=== PATIENT | male | born 1955 | race Caucasian/White ===

== ENCOUNTER 2025-07-11 10:05 | Outpatient (AMB) | payer OTHER, SELFPAY ==
--- OUTSIDE RECORDS SUMMARY | 2025-07-08 11:00 | XMS_ITS | Encounter Summary ---
Author Organization [facility] Address [address] [place] [address] Care Team Providers Care Farmworker Fryer Farm Name Role Phone Kim Mcbride PA-C Primary Care Provider [phone] Encounter Details Date Type Department Care Team (Late st Contact Info) Description 07/08/2025 11:00 AM EDT Office Visit [facility] [address] [place] [address] Haja Curiel, [facility] [address] [place], [place] [phone] Social History Tobacco Use Types Packs/Day Years Used Date Smoking Tobacco: Former Smokeless Tobacco: Never Comments:Smoked for 15 years Alcohol Use Standard Drinks/Week Comments Yes 2 (1 standard drink = 0.6 oz pur e alcohol) 2 glasses of vodka daily Social Connections Answer Date Recorded How often do you feel lonely or isolated from th ose around you? 1 12/30/2024 Financial Resource Strain Answer Date R ecorded Hard to pay for: Food 1 12/30/2024 Stress Answer Date Recorded Do you feel these kinds of stress these days? 1 12/30/2024 Physical Activity Answer Date Recorded Physical Activity 0 02/11/2022 Food Insecurity Answer Date Recorded Hard to pay for: Food 1 12/30/2024 Transportation Needs Answer Date Record ed Hard to pay for: Transportation 1 12/30/2024 Housing Stability Answer Date Recorded Hard to pay for: Rent/Mortgage payment 1 12/30/2024 Safety and Environment Answer Date Héctor rded Safety 1 02/23/2024 Utilities Answer Date Recorded Hard to pay for: Utilities 1 12/30 Employment Answer Date Recorded Stress 0 02/23/2024 Sex and Gender Information Value Date Recorded Sex Assigned at Male 06/09/2023 7:16 AM PDT Legal Sex Male 12:51 PM PDT Gender Identity Male 06/09/2023 7:16 AM PDT Sexual Orientation Straight 06/09/2023 7: 16 AM PDT documented as of this encounter Progress Notes * Haja Curiel RDH - 07/08/2025 12:37 PM EDT Prophy, 2 bwx 2 pa's, Exam - Adult Subjective Raymond Patel, 69 year old male, presents alone for Recall exam. Mixed Animal Veterinarian: No No chief complaint on file. Objective RMHx: Yes Vitals: There were no vitals filed for this visit. Assessment EOE/IOE/Oral Cancer Screen: WNL OH: Good Fluoride exposure: toothpaste Home Care: Toothbrush 1 x per day, Floss 1 x per day Plaque: Generalized Slight Calculus: None Bone Loss: Generalized Slight and Localized Slight PSR: Yes Periodontal Screening OHI & Nutrition counseling provided, discussed: Gingivitis Occlusion: N/A. Edentulous. Overbite N/A. Overjet N/A. TMJ: WNL Caries Risk Assessment: Auto calculated Risk Score : moderate risk Dx: K03.1 Abfraction (primary encounter diagnosis) Dx Details (Clinical Decision Making): Plan No restorative needed Informed Consent/PARQ (Procedure, Alternatives, Risks, Questions): Discussed exam findings and treatment needs, questions answered. Patient confirms informed consent using PARQ, verbalizes understanding of exam findings and treatment plan. Dental procedures in this visit D9450 - CASE PRESENTATION SUBS DTL & EXTENSIVE TX PLN (Completed) Service provider: Haja Curiel RDH Billing provider: Ralph Farias DMD [id number] - ORAL CANCER SCREENING (Completed) Service provider: Haja Curiel RDH Billing provider: Ralph Farias DMD D1330 - ORAL HYGIENE INSTRUCTIONS (Completed) Service provider: Haja Curiel RDH Billing provider: Ralph Farias DMD D1310 - NUTRITIONAL COUNSELING CONTROL OF DENTAL DISEASE (Completed) Service provider: Haja Curiel RDH Billing provider: Ralph Farias DMD D0602 - CARIES RISK ASSESSMENT & DOC FINDING MOD RISK (Completed) Service provider: Haja Curiel RDH Billing provider: Ralph Farias DMD D0120 - PERIODIC ORAL EVALUATION ESTABLISHED PATIENT (Completed) Service provider: Haja Curiel RDH Billing provider: Ralph Farias DMD D0180 - COMP PERIODONTAL EVALUATION - NEW/EST PATIENT (Completed) Service provider: Haja Curiel RDH Billing provider: Ralph Farias DMD D0274 - BITEWINGS - FOUR RADIOGRAPHIC IMAGES (Completed) Service provider: Haja Curiel RDH Billing provider: Ralph Farias DMD D1110 - PROPHYLAXIS - ADULT (Completed) Service provider: Haja Curiel RDH Billing provider: Ralph Farias DMD D9993 - DENTAL CASE MANAGEMENT - MOTIVATIONAL INTV (Completed) Service provider: Haja Curiel RDH Billing provider: Ralph Farias DMD Referrals: No orders of the following type(s) were placed in this encounter: Referral. Rx: No orders of the defined types were placed in this encounter. Behavior: Excellent Prophy completed via ultrasonic, handscale, albanian and floss NV: Recall Exam - [address] documented in this encounter Miscellaneous Notes * Patient Instructions - Haja Curiel RDH - 07/08/2025 11:41 AM EDT If you are not able to keep your appointment please call 24-48 hours before your appointment to cancel or reschedule. documented in this encounter Plan of Treatment Upcoming Encounters Date Type Department Care Team (Late st Contact Info) Description 08/04/2025 10:20 AM EDT Office Visit [facility] [address] [place] [phone] Kim Mcbride PA-C [address] [place] [address] documented as of this encounter Procedures Procedure Name Priority Date/Time Associated Diagnosis Comments ORAL CANCER SCREENING Routine 07/08/2025 11:00 AM EDT Abfraction DENTAL CASE MANAGEMENT - MOTIVATIONAL INTV Routine 07/08/2025 11:00 AM EDT Abfraction CARIES RISK ASSESSMENT & DOC FINDING MOD RISK Routine 07/08/2025 11:00 AM EDT Abfraction CASE PRESENTATION SUBS DTL & EXTENSIVE TX PLN Routine 07/08/2025 11:00 AM EDT Abfraction COMP PERIODONTAL EVALUATION - NEW/EST PATIENT Routine 07/08/2025 11:00 AM EDT Abfraction ORAL HYGIENE INSTRUCTIONS Routine 2024 11:00 AM EDT Abfraction NUTRITIONAL COUNSELING CONTROL OF DENTAL DISEASE Routine 07/08/2025 11:00 AM EDT Abfraction PROPHYLAXIS - ADULT Routine 07/08/2025 1 1:00 AM EDT Abfraction BITEWINGS - FOUR RADIOGRAPHIC IMAGES Routine 07/08/2025 11:00 AM EDT Abfraction PERIODIC ORAL EVALUATION ESTABLISHED PATIENT Routine 07/08/2025 11:00 AM EDT Abfraction documented in this encounter Visit Diagnoses Diagnosis Abfraction- Primary documented in this encounter Additional Health Concerns Assessment Noted Time PHQ-9 Depression Total Score: 0 12/30/19 25 11:05 AM PST documented as of this encounter Care Teams Farmworker Fryer Farm Relationship Specialty Start Date End Date Kim Mcbride PA-C [address] [place] [address] PCP - General FAMILY MEDICINELEXIE 02/23/24 documented as of this encounter
--- OUTSIDE RECORDS SUMMARY | 2025-07-08 11:40 | XMS_ITS | Encounter Summary ---
Author Organization [facility] Address [address] [place] [address] Care Team Providers Care Mobile Developer Name Role Phone Kim Mcbride PA-C Primary Care Provider Encounter Details Date Type Department Care Team (Late st Contact Info) Description 07/08/2025 11:40 AM EDT Office Visit [facility] [address] [place] [address] Ralph Farias DMD [address] [place], [place] [phone] Social History Tobacco Use Types Packs/Day Years [...] as of this encounter Progress Notes * Ralph Farias DMD - 07/08/2025 11:47 AM EDT Dental Removable - Adjustment SUBJECTIVE: Raymond Patel, 69 year old male, presents alone for Mandibular Complete Denture adjustment. Serology Teacher: No No chief complaint on file. OBJECTIVE: RMHx: Yes Vitals: There were no vitals filed for this visit. ASSESSMENT: Dx: K08.89,Z97.2 Ill-fitting dentures (primary encounter diagnosis) Dx Details (Clinical Decision-Making): Pt comes for denture adjustment. He complains about pressureon the both sides of the lower posterior ridge . PLAN: Informed Consent/PARQ (Procedure, Alternatives, Risks, Questions): Patient confirms informed consent using PARQ. Dental procedures in this visit TT049 - DENTURE ADJUSTMENT (Completed) Service provider: Ralph Farias DMD Billing provider: Ralph Farias DMD Mandibular Complete Denture adjustment completed. Details: Intaglio surface checked with PIP, checked borders & extensions, and adjusted area re-polished Checked Occl: Yes Pt comfortable and pleased with result: yes Post-Op Information Given: verbal Referral: No orders of the following type(s) were placed in this encounter: Referral. Rx: No orders of the defined types were placed in this encounter. Behavior: Excellent DA: [place] NV: Recall Exam - 6 months documented in this encounter Plan of Treatment Upcoming Encounters Date Type Department Care Team (Late st Contact Info) Description 08/04/2025 10:20 AM EDT Office Visit [facility] [address] [place] [phone] Kim Mcbride PA-C [address] [place] [address] documented as of this encounter Visit Diagnoses Diagnosis Ill-fitting dentures- Primary Problems with swallowing and mastication documented in this encounter Additional Health Concerns Assessment Noted Time PHQ-9 Depression Total Score: 0 12/30/19 11:05 AM PST documented as of this encounter Care Teams Mobile Developer Relationship Specialty Start Date End Date Kim Mcbride PA-C [address] [place] [address] PCP - General FAMILY MEDICINELEXIE 02/23/24 documented as of this encounter
--- NOTE | 2025-07-11 10:14 | MHC.OFFVIS ---
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 Patient reports his right hand is worse but is unsure if there is any particular finger being affected. 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 He drops drinks all the time. He has tried using a wrist brace however he has not tried formal occupational therapy or injections. He reports a Right Wrist Ganglion Cyst Removal ~ 10 years ago. He also thinks he has had right hand fractures as he recalls having a cast in the past. IMPRESSION: 1. 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 Patient reports his right hand is worse but is unsure if there is any particular finger being affected. 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 He drops drinks all the time. He has tried using a wrist brace however he has not tried formal occupational therapy or injections. He reports a Right Wrist Ganglion Cyst Removal ~ 10 years ago. He also thinks he has had right hand fractures as he recalls having a cast in the past. IMPRESSION: 1. 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 [facility] Surgical History (Updated 07/11/25 @ 10:29 by CONY Malhotra) History of surgery Social History (Updated 07/11/25 @ 10:27 by CONY Malhotra) Patient Tobacco Use Status: Former Tobacco user Review of Systems Const All systems reviewed & are unremarkable except as noted in HPI and below Physical Exam Vital Signs: BMI result Body Mass Index 28.2 Extrem Other: Neuro: Normal sensation of the tips of all digits of bilateral hands in the office today. No thenar or intrinsic wasting. Good APB muscle firing and good finger cross. Vascular: Capillary refill brisk. ROM: Patient can make a fist and extend all their digits. Skin: No lacerations or abrasions noted. General: No ecchymosis. No erythema or evidence of infection. Results Reviewed Results Reviewed: IMPRESSION: 1. 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 Assessment & Plan Assessment & Plan (1) Bilateral carpal tunnel syndrome: Code(s): G56.03 - Carpal tunnel syndrome, bilateral upper limbs Category: Medical (2) Cubital tunnel syndrome, bilateral: Code(s): G56.23 - Lesion of ulnar nerve, bilateral upper limbs Category: Medical Plan 1. Right cubital tunnel syndrome 2. Right carpal tunnel syndrome Symptoms intermittent, daily, worse at night I educated the patient about the condition. I discussed both operative and nonoperative treatment options. The patient would like to proceed with surgery. The risks and benefits of operative treatment were discussed with the patient and the patient wishes to proceed with surgery. These risks include, but are not limited to, risk of damage to blood vessels, nerves, tendons, infection, recurrence, incomplete relief of preoperative symptoms, persistent pain, possible need for further surgery, and the risks associated with regional blocks and/or anesthesia. Plan is to take the patient to the operating room at some point in the next few weeks for the following procedures: 1. Right cubital tunnel release under general 2. Right carpal tunnel release under general All of the preoperative paperwork including the consent was discussed today. All of the patient's questions were answered in the clinic today. The patient understands that they will be in contact with our nursing surgical services director to discuss scheduling their procedure. Patient denies diabetes, blood thinners, asthma, heart issues, lung issues, kidney issues, or current smoking. 3. Left cubital tunnel syndrome 4. Left carpal tunnel syndrome Patient would like to proceed with operative intervention on the right prior to any intervention of the left Patient is educated that it needs to be 3 months between surgical procedures that are under general anesthesia Patient understands this in his amenable to this plan Coding Level of Care Code New Pt Level 4 (00367) Diagnoses Bilateral carpal tunnel syndrome G56.03 Cubital tunnel syndrome, bilateral G56.23
[2025-07-11 10:38] VITALS: BMI 28.2
--- OUTSIDE RECORDS SUMMARY | 2025-07-11 11:49 | XMS_ITS | Encounter Summary ---
Author Organization [facility] Address [address] [place] [address] Phone Care Team Providers Care Liquefaction Plant Operator Name Role Phone Aleida Langley MD Primary Care Provider Encounter Details Date Type Department Care Team (Late st Contact Info) Description 06/13/2021 Procedure Pass [facility] [address] [place] [address] Social History Tobacco Use Types Packs/Day Years Used Date Smoking Tobacco: Former Cigarettes 1 13.4 0 04/02/1970 - 09/02/1983 Smokeless Tobacco: Never Comments:quit age 28 with 13 pack years Alcohol Use Standard Drinks/Week Comments Yes 14 (1 standard drink = 0.6 oz pu re alcohol) Sex and Gender Information Value Date Recorded Sex Assigned at Male 02/20/2021 1:14 PM EDT Legal Sex Male 1:57 PM EST Gender Identity Male 02/20/2021 1:14 PM EDT Sexual Orientation Not on file documented as of this encounter Functional Status * Calculated C-SSRS Risk Score (Lifetime/Recent) Answer Date of Assessment Author No Risk Indicated 06/13/2021 2:54 PM EDT Roslyn Weller RN * [place] Suicide Severity Rating Scale (Screener/Recent Self-Report) Question Answer Date of Assessment Author 1. Wish to be (Past 1 Month) No 021 2:54 PM EDT Roslyn Weller RN 2. Non-Specific Active Suici derrell Thoughts (Past 1 Month) No 06/13/2021 2:54 PM EDT Rhina Weller RN 6. Suicidal Behavior (Lifetime) No 2:54 PM EDT Roslyn Weller GALE documented as of this encounter Plan of Treatment Not on file documented as of this encounter Visit Diagnoses Not on filedocumented in this encounter Care Teams Liquefaction Plant Operator Relationship Specialty Start Date End Date Aleida Langley MD [address] [place] [address] PCP - General Internal Medicine 10/09/20 documented as of this encounter Additional Source Comments The information contained in this document represents components of the legal health record. It is not the complete legal health record.[facility]
--- OUTSIDE RECORDS SUMMARY | 2025-07-11 11:49 | XMS_ITS | Encounter Summary ---
Author Organization [facility] Address [address] [place] [address] Phone Care Team Providers Care Consultant Name Role Phone Aleida Langley MD Primary Care Provider Encounter Details Date Type Department Care Team (Late st Contact Info) Description 06/14/2021 Procedure Pass [facility] [address] [place] [address] Social History Tobacco Use Types Packs/Day Years [...] on file documented as of this encounter Plan of Treatment Not on file documented as of this encounter Visit Diagnoses Not on filedocumented in this encounter Care Teams Consultant Relationship Specialty Start Date End Date Aleida Langley MD [address] [place] [address] PCP - General Internal Medicine 10/09/20 documented as of this encounter Additional Source Comments The information contained in this document represents components of the legal health record. It is not the complete legal health record.[facility]
--- OUTSIDE RECORDS SUMMARY | 2025-07-11 11:49 | XMS_ITS | Encounter Summary ---
Author Organization [facility] Address [address] [address] [place] [address] Care Team Providers Care Fiction And Nonfiction Writer Prose Name Role Phone Kim Mcbride PA-C Primary Care Provider Encounter Details Date Type Department Care Team (Late st Contact Info) Description 03/27/2022 Dental Interim Note [facility] [address] [place] [address] Pedro Hollins DDS [address] [place] [address] Social History Tobacco Use Types Packs/Day Years Used Date Smoking Tobacco: Former Smokeless Tobacco: Never Alcohol Use Standard Drinks/Week Comments Never 0 (1 standard drink = 0.6 oz pur e alcohol) Social Connections Answer Date Recorded Social Connections and Isolation 0 02/11/2022 Financial Resource Strain Answer Date R ecorded Financial Resource Strain 0 2021 Stress Answer Date Recorded Stress 0 02/11/2022 Physical Activity Answer Date Recorded Physical Activity 0 02/11/2022 Food Insecurity Answer Date Recorded Food 0 02/11/2022 Transportation Needs Answer Date Record ed Transportation 0 02/11/2022 Housing Stability Answer Date Recorded Housing 0 02/11/2022 Safety and Environment Answer Date Héctor rded Safety 0 02/11/2022 Utilities Answer Date Recorded Utilities 0 02/11/2022 Employment Answer Date Recorded Employment 0 02/11/2022 Sex and Gender Information Value Date Recorded Sex Assigned at Male 06/09/2023 7:16 AM PDT Legal Sex Male 12:51 PM PDT Gender Identity Male 06/09/2023 7:16 AM PDT Sexual Orientation Straight 06/09/2023 7: 16 AM PDT COVID-19 Exposure Response Date Recorded In the last 10 days, have yo u been in contact with someone who was confirmed or suspected to have Coronavirus/COVID-19? No / Unsure 03/27/2022 4:20 PM EDT documented as of this encounter Plan of Treatment Upcoming Encounters Date Type Department Care Team (Late st Contact Info) Description 08/04/2025 10:20 AM EDT Office Visit [facility] [address] [place] [phone] Kim Mcbride PA-C [address] [place] [address] documented as of this encounter Visit Diagnoses Not on filedocumented in this encounter Care Teams Fiction And Nonfiction Writer Prose Relationship Specialty Start Date End Date Kim Mcbride PA-C [address] [place] [address] PCP - General FAMILY MEDICINELEXIE 02/23/24 documented as of this encounter
--- OUTSIDE RECORDS SUMMARY | 2025-07-11 11:49 | XMS_ITS | Encounter Summary ---
Author Organization [facility] Address [address] [place] [address] Phone Care Team Providers Care Director Law Enforcement Name Role Phone Aleida Langley MD Primary Care Provider Encounter Details Date Type Department Care Team (Late st Contact Info) Description 01/17/2021 Procedure Pass [place] Admitting Dept - [facility] Department [address] [place] [address] Social History Tobacco Use Types Packs/Day Years Used Date Smoking Tobacco: Former Smokeless Tobacco: Never Comments:quit age 28 with [...] on filedocumented in this encounter Care Teams Director Law Enforcement Relationship Specialty Start Date End Date Aleida Langley MD [address] [place] [address] PCP - General Internal Medicine 10/09/20 documented as of this encounter Additional Source Comments The information contained in this document represents components of the legal health record. It is not the complete legal health record.[facility]
--- OUTSIDE RECORDS SUMMARY | 2025-07-11 11:49 | XMS_ITS | Encounter Summary ---
Author Organization [facility] Address [address] [facility] [address] [facility] [address] [place] [phone] Phone Care Team Providers Care Educational Guidance Counselor Name Role Phone Aleida Lnagley MD Primary Care Provider Encounter Details Date Type Department Care Team (Late st Contact Info) Description 02/18/2021 Procedure Pass [facility] [address] [place] [address] Social History Tobacco Use Types Packs/Day Years [...] Date of Assessment Author No Risk Indicated 02/20/2021 1:14 PM EDT Sammi Villanueva CNP * [place] Suicide Severity Rating Scale (Screener/Recent Self-Report) Question Answer Date of Assessment Author 1. Wish to be (Past 1 Month) No 02/20/2021 1:14 PM EDT Sammi Villanueva CNP 2. Non-Specific Active Suicidal Thoughts (Past 1 Month) No 02/20/2021 1:14 PM EDT Sammi Villanueva CNP 6. Suicidal Behavior (Lifetime) No 02/20/2021 1:14 PM EDT Sammi Villanueva CNP documented as of this encounter Plan of Treatment Not on file documented as of this encounter Visit Diagnoses Not on filedocumented in this encounter Care Teams Educational Guidance Counselor Relationship Specialty Start Date End Date Aleida Langley MD [address] [place] [address] PCP - General Internal Medicine 10/09/20 documented as of this encounter Additional Source Comments The information contained in this document represents components of the legal health record. It is not the complete legal health record.[facility]
--- OUTSIDE RECORDS SUMMARY | 2025-07-11 11:49 | XMS_ITS | Encounter Summary ---
Author Organization [facility] Address [address] [facility] [address] [place] [phone] Phone Care Team Providers Care Natural Gas Technician Name Role Phone Aleida Langley MD Primary Care Provider Encounter Details Date Type Department Care Team (Late st Contact Info) Description 06/13/2021 Procedure Pass [place] Admitting Dept - [facility] Department [address] [place] [address] Social History Tobacco Use Types Packs/Day Years [...] 2:54 PM EDT Roslyn Weller RN * [place] Suicide Severity Rating Scale (Screener/Recent Self-Report) Question Answer Date of Assessment Author 1. Wish to be (Past 1 Month) No 021 2:54 PM EDT Roslyn Weller RN 2. Non-Specific Active Suici derrell Thoughts (Past 1 Month) No 06/13/2021 2:54 PM EDT Rhina Weller RN 6. Suicidal Behavior (Lifetime) No 2:54 PM EDT Roslyn Weller, G[place] documented as of this encounter Plan of Treatment Not on file documented as of this encounter Visit Diagnoses Not on filedocumented in this encounter Care Teams Natural Gas Technician Relationship Specialty Start Date End Date Aleida Langley MD [address] [place] [address] PCP - General Internal Medicine 10/09/20 documented as of this encounter Additional Source Comments The information contained in this document represents components of the legal health record. It is not the complete legal health record.[facility]
--- OUTSIDE RECORDS SUMMARY | 2025-07-11 11:49 | XMS_ITS | Encounter Summary ---
Author Organization [facility] Address [address] [facility] [address] [place] [address] Phone Care Team Providers Care Product Evangelist Name Role Phone Aleida Langley MD Primary Care Provider Encounter Details Date Type Department Care Team (Late st Contact Info) Description 02/18/2021 Procedure Pass [facility] [address] [place] [address] Social History Tobacco Use Types Packs/Day Years [...] 1:14 PM EDT Sammi Villanueva CNP * [place] Suicide Severity Rating Scale (Screener/Recent Self-Report) Question [...] on filedocumented in this encounter Care Teams Product Evangelist Relationship Specialty Start Date End Date Aleida Langley MD [address] [place] [phone] PCP - General Internal Medicine 10/09/20 documented as of this encounter Additional Source Comments The information contained in this document represents components of the legal health record. It is not the complete legal health record.[facility]
--- OUTSIDE RECORDS SUMMARY | 2025-07-11 11:49 | XMS_ITS | Encounter Summary ---
Author Organization [facility] Address [address] [facility] [address] [place] [phone] Phone Care Team Providers Care Interior Design Assistant Name Role Phone Aleida Langley MD Primary Care Provider Encounter Details Date Type Department Care Team (Late st Contact Info) Description 02/14/2021 Procedure Pass OR Admitting Dept - [facility] Department [address] [place] [address] Social History Tobacco Use Types Packs/Day Years [...] Date of Assessment Author No Risk Indicated 02/14/2021 12:18 PM EDT Heidi Mckoy RN * [place] Suicide Severity Rating Scale (Screener/Recent Self-Report) Question Answer Date of Assessment Author 1. Wish to be (Past 1 Month) No 021 12:18 PM CHITOT Heidi Álvarez RN 2. Non-Specific Active Suici derrell Thoughts (Past 1 Month) No 02/14/2021 12:18 PM CHITOT Romi Álvarez RN 6. Suicidal Behavior (Lifetime) No 12:18 PM EDT Letha, Heidi, RN documented as of this encounter Plan of Treatment Not on file documented as of this encounter Visit Diagnoses Not on filedocumented in this encounter Care Teams Interior Design Assistant Relationship Specialty Start Date End Date Aleida Langley MD [address] [place] [phone] PCP - General Internal Medicine 10/09/20 documented as of this encounter Additional Source Comments The information contained in this document represents components of the legal health record. It is not the complete legal health record.[facility]
--- OUTSIDE RECORDS SUMMARY | 2025-07-11 11:49 | XMS_ITS | Encounter Summary ---
Author Organization [facility] Address [address] [facility] [address] [place] [address] Phone Care Team Providers Care Line Maintenance Supervisor Name Role Phone Aleida Langley MD Primary Care Provider Encounter Details Date Type Department Care Team (Late st Contact Info) Description 02/18/2021 Procedure Pass [facility]iology [address] [place] [address] Social History Tobacco Use Types Packs/Day Years [...] 1:14 PM EDT Sammi Villanueva CNP * [place] Suicide Severity Rating Scale (Screener/Recent Self-Report) Question Answer Date of Assessment Author 1. Wish to be (Past 1 Month) No 02/20/2021 1:14 PM EDT Sammi Villanueva CNP 2. Non-Specific Active Suicidal Thoughts (Past 1 Month) No 02/20/2021 1:14 PM EDT Sammi Villanueva CNP 6. Suicidal Behavior (Lifetime) No 02/20/2021 1:14 PM EDT Smami Villanueva CNP documented as of this encounter Plan of Treatment Not on file documented as of this encounter Visit Diagnoses Not on filedocumented in this encounter Care Teams Line Maintenance Supervisor Relationship Specialty Start Date End Date Aleida Langley MD [address] [place] [phone] PCP - General Internal Medicine 10/09/20 documented as of this encounter Additional Source Comments The information contained in this document represents components of the legal health record. It is not the complete legal health record.[facility]
--- OUTSIDE RECORDS SUMMARY | 2025-07-11 11:50 | XMS_ITS | Encounter Summary ---
Author Organization [facility] Address [address] [place] [address] Phone Care Team Providers Care Security Shift Manager Name Role Phone Unknown, Unknown Primary Care Provider Aleida Rios MD Primary Care Provider Encounter Details Date Type Department Care Team (Late st Contact Info) Description 10/02/2020 Procedure Pass [facility], Ct Scan - [address] [address] Social History Tobacco Use Types Packs/Day Years Used Date Smoking Tobacco: Former Smokeless Tobacco: Never Sex and Gender Information Value Date Recorded Sex Assigned at Male 02/20/2021 1:14 PM EDT Legal Sex Male 1:57 PM EST Gender Identity Male 02/20/2021 1:14 PM EDT Sexual Orientation Not on file documented as of this encounter Plan of Treatment Not on file documented as of this encounter Visit Diagnoses Not on filedocumented in this encounter Care Teams Security Shift Manager Relationship Specialty Start Date End Date Unknown, Britney, PCP - General 09/03/20 10/08/20 Aleida Langley MD [address] [place] [address] PCP - General Internal Medicine 10/09/20 documented as of this encounter Additional Source Comments The information contained in this document represents components of the legal health record. It is not the complete legal health record.[facility]
--- OUTSIDE RECORDS SUMMARY | 2025-07-11 11:50 | XMS_ITS | Encounter Summary ---
Author Organization [facility] Address [address] [facility] [address] [place] [address] Phone Care Team Providers Care Senior Accountant Analyst Name Role Phone Unknown, Unknown Primary Care Provider Aleida Rios MD Primary Care Provider Encounter Details Date Type Department Care Team (Late st Contact Info) Description 09/04/2020 Ancillary Orders [facility],Outside Imaging [address] [place], [place] [id number] System, Provider Not In, [facility] [address] [address] Social History Tobacco Use Types Packs/Day Years Used Date Smoking Tobacco: Never Assessed Sex and Gender Information Value Date Recorded Sex Assigned at Male 02/20/2021 1:14 PM EDT Legal Sex Male 1:57 PM EST Gender Identity Male 02/20/2021 1:14 PM EDT Sexual Orientation Not on file documented as of this encounter Plan of Treatment Not on file documented as of this encounter Results * XR Upper Extremity Outside (No Interpretation) (08/20/2020 12:00 AM EDT) Narrative SYSTEMGENERATED, DOCUMENTATION - 09/04/2020 8:31 AM EST This study is for PACS storage only and not for interpretation. us Provider Not In System PhD IMG OUTSIDE IMAGING W /OUT INTERPRETATION Final Result documented in this encounter Visit Diagnoses Not on filedocumented in this encounter Care Teams Senior Accountant Analyst Relationship Specialty Start Date End Date Unknown, Unknown, PCP - General 09/03/20 10/08/20 Aleida Langley MD [address] [place], [place] [phone] PCP - General Internal Medicine 10/09/20 documented as of this encounter Additional Source Comments The information contained in this document represents components of the legal health record. It is not the complete legal health record.[facility]
--- OUTSIDE RECORDS SUMMARY | 2025-07-11 11:50 | XMS_ITS | Clinical Summary ---
Author Organization [facility] Address [address] [facility] [address] [place] [phone] Phone Care Team Providers Care Press Operator Carbon Blocks Name Role Phone Aleida Langley MD Primary Care Provider Allergies No known active allergies Medications omega 1-pxg-uah-fish oil 1,000 mg (120 mg-180 mg) Cap Take 1 capsule by mouth daily. Active ascorbic acid, vitamin C, (VITAMIN C) 500 MG tablet Take 500 mg by mouth daily. Active calcium carbonate (OS-VASU) 1,250 mg (500 mg elemental) tablet Take 1 tablet by mouth daily. Active b complex vitamins capsule Take 1 capsule by mouth daily. Active acetaminophen (TYLENOL) 325 mg tablet Take 2 tablets (650 mg total) by mouth every 6 (six) hours as needed for mild pain or fever. 0 1 Active Additional Information Patient not taking.Reported on 10/14/2021 ketorolac (ACULAR) 0.5 % ophthalmic solution 2 Active aspirin 325 MG tablet Take 1 tablet (325 mg total) by mouth daily. 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 Pham, [facility] Preop examination 12/04/2020 Assessment & Plan (12/04/2020 12:09 PM EST): This is a 65-year-old patient of Dr.Cuevas Foss at [facility] and Dr. Pham seen at the surgical optimization clinic for planned right shoulder arthroplasty on 01/17. This is a very active 65-year-old male with excellent exercise tolerance. His risk calculators show a Trejo score of 0.2% chance of cardiac issues perioperatively or in the first 30 days. His RCRI score is congruent with this at 0.4% chance of ID, CHF, or arrhythmia perioperatively. This is considered a very low risk score. His NSQIP score is also congruent with this with a 0.1% chance of cardiac event perioperatively. He has approximately 2.1% chance of any complication and a 2% chance of a serious complication. These are both below normal. His EKG here today is unremarkable. His blood work done on 26 November shows a CBC with mild microcytic indices which he states has been noted throughout his entire life and he was told it was because he is Mediterranean . He may have thalassemia trait. His BMP is unremarkable. He does not require any further work-up before proceeding to the surgery. Issues with this patient perioperatively would be his daily use of marijuana. He is advised to stop smoking 30days before the surgery and feels that this will not be an issue. He also uses moderate amount of alcohol and has been making efforts to drink less, as he sees a direct correlation to that and weight gain. There are no signs of symptoms of withdrawal when he does not drink and he gives a negative CAGE interview. The patient should be monitored for sleep apnea in the PACU. Essential hypertension 12/04/2020 Assessment & Plan (12/04/2020 12:08 PM EST): The patient has been off medication for some time after a significant weight loss from the 260s down to around 165. His weight has snuck back up to the 195 range recently but his blood pressure is reasonable. No medications are indicated Sleep apnea 12/04/2020 Assessment & Plan (12/04/2020 12:12 PM EST): As above and the patient was weight was in the 252-60 range she did use CPAP for sleep apnea. When his weight got down to 165 he no longer required it. He did have a sleep study 2 to 3 months ago at [facility] and he has not been restarted on CPAP. That being said his weight is going up, so he should be watched closely for apnea in the PACU. 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 and body mass index (BMI) of 33.0 to 33.9 in adult Overview (02/16/2021): 33.5 as of 02/16/2021 Resolved Problems Problem Noted Date Diagnosed Date Resolved Date Status post total knee replacement, left 05/29/2020 02/18/2021 Overview (02/16/2021): Wing Damián Status post total knee replacement, right 08/19/2019 02/18/2021 Overview (02/16/2021): Wing Damián Status post reconstruction o f acromioclavicular joint 03/31/2019 02/18/2021 Overview (02/16/2021): Wing Damián Immunizations Immunization Administration Dates Next Due COVID-19 (Pre-08/24) Moderna Vaccine, mRNA, PF 0 01/18/2021 Family History Medical History Relation Comments No Known Problems Brother No Known Problems Daughter Colon cancer Father No Known Problems Mother No Known Problems Sister No Known Problems Son 1 No Known Problems Son 2 Relation Status Comments Brother Alive Daughter Alive Father Mother Alive Sister Alive Son 1 Alive Son 2 Alive Social History Tobacco Use Types Packs/Day Years Used Date Smoking Tobacco: Former Cigarettes 1 13.4 0 04/02/1970 - 09/02/1983 Smokeless Tobacco: Never Comments:quit age 28 with 13 pack years Alcohol Use Standard Drinks/Week Comments Yes 14 (1 standard drink = 0.6 oz pu re alcohol) Education Answer Date Recorded Are you interested in more education? Not on macarena e 02/27/2023 Are you concerned about learning? Not on file 02/27/2023 No 02/27/2023 No 02/27/2023 Digital Access Answer Date Recorded No 03/28/2023 No 03/28/2023 No 03/28/2023 Reliable internet access at home? Not on file 03/28/2023 Device with a working camera? Not on file Sex and Gender Information Value Date Recorded Sex Assigned at Male 02/20/2021 1:14 PM EDT Legal Sex Male 1:57 PM EST Gender Identity Male 02/20/2021 1:14 PM EDT Sexual Orientation Not on file Last Filed Vital Signs Vital Sign Reading Time Taken Comments Blood Pressure 152/91 10/15/2021 11:42 AM EST Pulse 76 10/15/2021 11:42 AM EST Temperature 36.5 C (97.7 F) 10/15/2021 11:42 AM EST Respiratory Rate 16 10/15/2021 11:42 AM EST Oxygen Saturation 96% 10/15/2021 11:42 AM EST Inhaled Oxygen Concentration - - Weight 88.5 kg (195 lb) 06/06/2022 12:32 PM EDT Height 162.6 cm (5' 4 ) 06/06/2022 12:32 PM EDT Body Mass Index 33.47 06/06/2022 12:32 PM EDT Plan of Treatment Health Maintenance Due Date Last Done Comments BLOOD PRESSURE 1953 LIPID PANEL 1953 DEPRESSION SCREENING 1965 SMOKING Hx and SMOKELESS TOBACCO SCREENING 1966 HEPATITIS C SCREENING 1971 COLOGUARD 1998 COLONOSCOPY 1998 COLORECTAL CANCER SCREENING 1998 FIT TEST 1998 FOBT 1998 SIGMOIDOSCOPY 1998 VIRTUAL COLONOSCOPY 1998 ZOSTER VACCINES (1 of 2) 2003 ABDOMINAL AORTIC ANEURYSM (AAA) SCREENING 2018 PNEUMOCOCCAL VACCINES (50+ years) (2 of 2 - PPSV23) 01/19/2020 01/18/2019 INFLUENZA VACCINE (#1) 2025 9, 01/18/2019 COVID-19 VACCINE (2 - 2024-2 6 season) 2025 01/18/2021 Adult Td,Tdap Booster 03/22/2028 03/22/2018 RSV VACCINE (1 - 1-dose 75+ series) 2028 HEPATITIS A VACCINES Aged Out No long er eligible based on patient's age to complete this topic HIB VACCINES Aged Out No longer eligi ble based on patient's age to complete this topic MENINGOCOCCAL VACCINES (ACWY) Aged Out No longer eligible based on patient's age to complete this topic MENINGOCOCCAL VACCINES (B) Aged Out N o longer eligible based on patient's age to complete this topic Medical Devices Implanted Type Area Shredded Filler Cutter Operator Device Identifier Shelf Expiration Date Model / Serial / Lot Right Shoulder NODATA Right: Shoulder Description:Unknown hardware from prior surgery Bilateral Knees Prosthetic Joint Prosthetic Joint Bilateral: Knee Shoulder Implant 30mm Md Component Glenoid Aequalis Perform Cortiloc - [id number] Implanted:Qty : 1 on 01/17/2021 by Vamsi Pham DO at [facility] STANDARD Right: Acromial Process [employer] 04/20/2022 [id number] / [id number] / Cement Bone Biomet Standard R 1x40 Us - [id number] Implanted:Qty : 1 on 01/17/2021 by Vamsi Pham DO at [facility] Right: Acromial Process MINESH / DIV OF [employer] 06/29/2025 [id number] / / [id number] Shoulder Simpliciti Size 2 Nucleus Humeral System - [id number] Implanted:Qty : 1 on 01/17/2021 by Vamsi Pham DO at [facility] Right: Acromial Process [employer] 11/16/2024 [id number] / [id number] / Shoulder [id number] Prosthesis Simpliciti - [id number] Implanted:Qty : 1 on 01/17/2021 by Vamsi Pham DO at [facility] Right: Acromial Process [employer] 03/26/2025 [id number] / [id number] / Cement Bone Biomet Standard R 1x40 Us - [id number] Implanted:Qty : 1 on 06/13/2021 by Vamsi Pham DO at [facility] Right: Shoulder MINESH / DIV OF [employer] 08/01/2025 [id number] / / [id number] Cement Bone Biomet Standard R 1x40 - [id number] Implanted:Qty : 1 on 06/13/2021 by Vamsi Pham DO at [facility] Right: Shoulder MINESH / DIV OF [employer] 04/01/2024 [id number] / / [id number] Insurance [employer] PPO MEDICARE REPLACEMENT [employer] PPO MEDICARE REPLACEMENT [employer] PPO MEDICARE REPLACEMENT O MEDICARE REPLACEMENT O MEDICARE REPLACEMENT [place] [employer] MEDICARE REPLACEMENT [place] [employer] MED[employer] REPLAC[place] [employer] MED[employer] REPLAC[place] [employer] MEDIC[employer] REPLACEMENT Advance Directives For more information, please contact: [phone] (9AM - 5PM [facility], Thursday-Thursday) Documents on File Type Date Recorded Patient Agricultural Commodities Inspector Expl anation Healthcare Proxy 02/20/2021 1:52 PM * Full Code (Latest Code Status on File) Date Activated Date Inactivated Comments 02/14/2021 1:12 PM Question Answer Comments Code Status Confirmed With: Patient Care Teams Press Operator Carbon Blocks Relationship Specialty Start Date End Date Aleida Langley MD [address] [place] [phone] PCP - General Internal Medicine 10/09/20 Additional Source Comments The information contained in this document represents components of the legal health record. It is not the complete legal health record.[facility]
--- OUTSIDE RECORDS SUMMARY | 2025-07-11 11:50 | XMS_ITS | Encounter Summary ---
Author Organization [facility] Address [address] [facility] [address] [place] [phone] Phone Care Team Providers Care Assistant Housekeeping Manager Name Role Phone Aleida Langley MD Primary Care Provider Encounter Details Date Type Department Care Team (Late st Contact Info) Description 09/03/2021 Procedure Pass [facility]iology [address] [place] [address] Social History Tobacco Use Types Packs/Day Years [...] on filedocumented in this encounter Care Teams Assistant Housekeeping Manager Relationship Specialty Start Date End Date Aleida Langley MD [address] [place] [address] PCP - General Internal Medicine 10/09/20 documented as of this encounter Additional Source Comments The information contained in this document represents components of the legal health record. It is not the complete legal health record.[facility]
--- OUTSIDE RECORDS SUMMARY | 2025-07-11 11:50 | XMS_ITS | Clinical Summary ---
Author Organization [facility] Address [address] [place] [address] Care Team Providers Care Intelligence Group Supervisor Name Role Phone Kim Mcbride PA-C Primary Care Provider Source Comments PLEASE NOTE, if this patient is a minor, it may be UNLAWFUL to discuss sensitive information that is contained in these records (such as FAMILY PLANNING, MENTAL HEALTH or SUBSTANCE ABUSE) with the minor patient's parent or other person without the patient's specific authorization.[facility] Allergies No known active allergies Medications acetaminophen (TYLENOL) 500 mg tabletIndications :Chronic apical periodontitis Take 1 Tablet by mouth every 6 (six) hours as needed for pain 20 Tablet 11/13/19 23 Active ascorbic acid (VITAMIN C) 500 mg tablet Take 500 mg by mouth daily Active calcium (OS-VASU) 500 mg calcium (1,250 mg) tablet Take 1 Tablet by mouth daily Active VITAMIN B COMPLEX ORAL Take 1 Capsule by mouth daily Active ketorolac (ACULAR) 0.5 % ophthalmic solution 11/11/19 22 Active omega 6-ctt-zrq-fish oil 1,000 mg (120 mg-180 mg) capsule Take 1 Capsule by mouth once daily 06/18/20 21 Active amLODIPine (NORVASC) 5 mg tablet Take 5 mg by mouth once daily. 03/25/20 25 Active docusate sodium (COLACE) 100 mg capsule Take 100 mg by mouth. 08/26/20 24 Active EPINEPHrine (EPIPEN) 0.3 mg/0.3 mL pen injector ADMINISTER 0.3 MG IN THE MUSCLE 1 TIME NEEDED FOR ANAPHYLACTIC REACTION 05/04/20 24 Active gabapentin (NEURONTIN) 100 mg capsule Take 200 mg by mouth. 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 Pham, [facility] Essential hypertension 11/02/2017 Overview (02/23/2024): Last Assessment & Plan: The patient has been off medication for some time after a significant weight loss from the 260s down to around 165. His weight has snuck back up to the 195 range recently but his blood pressure is reasonable. No medications are indicated Encounters Date Type Department Care Team Description 07/08/2025 11:40 AM EDT Office Visit [address] [phone] Ralph Farias DMD 07/08/2025 11:00 AM EDT Office Visit [address] [address] Haja Curiel RDH 06/24/2025 11:00 AM EDT Office Visit [address] [address] Ralph Farias, DMD 05/26/2025 1:00 PM EDT Office Visit [address] [address] Ralph Farias, DMD 05/18/2025 11:00 AM EDT Office Visit [address] [phone] Ralph Farias, DMD 05/11/2025 11:00 AM EDT Office Visit [address] [address] Ralph Farias, DMD 04/27/2025 1:00 PM EDT Office Visit [address] [address] Ralph Farias, DMD 04/19/2025 10:00 AM EDT Office Visit [address] [address] Kim Mcbride PA-C from Last 3 Months Immunizations Immunization Administration Dates Next Due INFLUENZA, SEASONAL, INJECTABLE 12/15/2022,08/10,01/18/2019 Influenza (FLUZONE), high-do se, trivalent, PF 08/26/2024 PNEUMOCOCCAL CONJUGATE PCV 13 01/18/2019 PNEUMOCOCCAL CONJUGATE PCV 20 (Prevnar 20) 02/22 Pfizer COVID vaccine, CLAUDIAIRBenji GERMAN, emily cap, 12+ 01/30/2022 Pfizer-BioNTGetThis COVID-19 Vac cine Bivalent, (HALL PFIZER-BIONTECH COVID-19 VACCINE BIVALENT, (HALL CAP 12/15/2022 TDAP 03/22/2018 ZOSTER VACCINE, RECOMBINANT (SHINGRIX) ,02/23/2024 Family History Medical History Relation Name Comments Prostate Cancer Father Relation Name Status Comments Father Social History Tobacco Use Types Packs/Day Years Used Date Smoking Tobacco: Former Smokeless Tobacco: Never Tobacco Cessation:Counseling Given: No Comments:Smoked for 15 years Alcohol Use Standard [...] Orientation Straight 06/09/2023 7: 16 AM PDT Last Filed Vital Signs Vital Sign Reading Time Taken Comments Blood Pressure 135/83 06/24/2025 10:50 AM EDT Pulse 60 06/24/2025 10:50 AM EDT Temperature 36.5 C (97.7 F) 04/19/2025 9:56 AM EDT Respiratory Rate 18 04/19/2025 9:56 AM EDT Oxygen Saturation 97% 04/19/2025 9:56 AM EDT Inhaled Oxygen Concentration - - Weight 85.3 kg (188 lb) 04/19/2025 9:56 AM EDT Height 167.6 cm (5' 6 ) 04/19/2025 9:56 AM EDT Body Mass Index 30.34 04/19/2025 9:56 AM EDT Plan of Treatment Upcoming Encounters Date Type Department Care Team (Late st Contact Info) Description 08/04/2025 10:20 AM EDT Office Visit [facility] [address] [place] [address] Kim Mcbride PA-C [address] [place] [address] Health Maintenance Due Date Last Done Comments CT Colonography 1998 Colonoscopy 1998 Colorectal Cancer Screening 1998 FIT/gFOBT 1998 Fecal DNA 1998 Flexible Sigmoidoscopy 1998 Falls Prevention 02/22/2025 02/23/2024 Lig-PERSA-69 ( season) 2025 12/15/2022, 01/30/2022, 04/11/2021, Additional history exists Imm-Influenza (#1) 2025 08/26/2024, 0 12/15/2022, 08/10/2019, Additional history exists Syphilis Screening 07/25/2025 02/23/2024 Postponed from 02/22/2025 (Patient postponement) Tobacco Screening 05/18/2026 05/18/2025 Dental BW 07/10/2026 07/08/2025, 10/02/2022 Dental Examination 07/10/2026 07/08/2025, 0 06/11/2023, 10/02/2022 Dental Perio Charting 07/10/2026 07/08/2025 Dental Prophy 07/10/2026 07/08/2025, 08/, 10/02/2022 Diabetes Screening 12/30/2027 12/30/2024, 0 02/23/2024, 11/26/2020 Lipid Screening 12/30/2027 12/30/2024, 02/23/2024 Imm-DTaP/Tdap/Td (2 - Td or Tdap) 03/22/2028 03/22/2018 Dental FMX/Pano 01/13/2030 01/11/2025, 11/13/2022 Hepatitis C Screening Completed 02/23/2024 Imm-Pneumococcal 50+ Completed 02/23/2024, 01/19/20 Abdominal Aortic Aneurysm Screening Completed 03/11/2024 Alcohol and Drug Screen Completed 12/30/2024, 02/22 Depression Annual Screen Completed 12/30/2024 Imm-Zoster, Recombinant Completed 12/30/2024, 02/22 Procedures Procedure Name Priority Date/Time Associated Diagnosis Comments DENTAL CASE MANAGEMENT - MOTIVATIONAL INTV Routine 07/08/2025 11:00 AM EDT [facility] PROPHYLAXIS - ADULT Routine 07/08/2025 1 1:00 AM EDT [facility] BITEWINGS - FOUR RADIOGRAPHIC IMAGES Routine 07/08/2025 11:00 AM EDT [facility] COMP PERIODONTAL EVALUATION - NEW/EST PATIENT Routine 07/08/2025 11:00 AM EDT [facility] PERIODIC ORAL EVALUATION ESTABLISHED PATIENT Routine 07/08/2025 11:00 AM EDT [facility] CARIES RISK ASSESSMENT & DOC FINDING MOD RISK Routine 07/08/2025 11:00 AM EDT [facility] NUTRITIONAL COUNSELING CONTROL OF DENTAL DISEASE Routine 07/08/2025 11:00 AM EDT [facility] ORAL HYGIENE INSTRUCTIONS Routine 07/08/2025 11:00 AM EDT [facility] ORAL CANCER SCREENING Routine 07/08/2025 11:00 AM EDT [facility] CASE PRESENTATION SUBS DTL & EXTENSIVE TX PLN Routine 07/08/2025 11:00 AM EDT [facility] 5,12,13,14,15 MAXILLARY PARTIAL DENTURE - RESIN BASE Routine 06/24/2025 11:00 AM EDT Partial edentulism, unspecified edentulism class Fabian COMPLETE DENTURE - MANDIBULAR Routine 06/24/2025 11:00 AM EDT Partial edentulism, unspecified edentulism class DENTURE WAX TRY IN Routine 05/26/2025 1: 00 PM EDT Complete edentulism, unspecified edentulism class BITE REGISTRY Routine 05/18/2025 11:00 AM EDT Partial edentulism, unspecified edentulism class WAX-RIMS Routine 05/18/2025 11:00 AM EDT Partial edentulism, unspecified edentulism class FINAL IMPRESSION Routine 05/11/2025 11:0 0 AM EDT Complete edentulism, unspecified edentulism class REMOVABLE PARTIAL DENTURE - INITIAL IMPRESSIONS Routine 04/27/2025 1:00 PM EDT Partial edentulism, unspecified edentulism class PANORAMIC RADIOGRAPHIC IMAGE Routine 01/11/2025 9:00 AM EDT Ill-fitting dentures COMPREHENSIVE METABOLIC PANEL Routine 12/30/2024 11:28 AM EST Essential hypertension LIPID PANEL Routine 12/30/2024 11:28 AM EST Essential hypertension US ABDOMINAL AORTA REAL TIME SCREEN STUDY AAA Routine 03/11/2024 3:00 AM EDT Encounter for abdominal aortic aneurysm (AAA) screening RPR (DIAGNOSIS) WITH REFLEX TO TITER AND CONFIRMATORY TESTING Routine 02/23/2024 10:42 AM EDT Routine screening for STI (sexually transmitted infection) HEPATITIS C AB W/RFLX HCV RNA, QT, RT PCR Routine 02/23/2024 10:42 AM EDT Routine screening for STI (sexually transmitted infection) from Last 3 Months or Most Recently Relevant to Health Maintenance Results * LIPID PANEL (12/30/2024 11:28 AM EST) CHOLESTEROL, TOTAL 190 <200 mg/dL [facility] HDL CHOLESTEROL 80 > OR = 40 mg/dL [facility] TRIGLYCERIDES 69 <150 mg/dL [facility] LDL-CHOLESTEROL 94 99 mg/dL (calc) [facility] Comment: Reference range: <100 Desirable range <100 mg/dL for primary prevention; <70 mg/dL for patients with CHD or diabetic patients with > or = 2 CHD risk factors. LDL-C is now calculated using the Angel-Sales calculation, which is a validated novel method providing better accuracy than the Friedewald equation in the estimation of LDL-C. Angel SS et al. ISRAEL. 2013;310(19): 7188-0435 (http://education.[employer] Electric/faq/ZKW547) CHOL/HDLC RATIO 2.4 <5.0 (calc) [facility] NON-HDL CHOLESTEROL 110 <130 mg/dL (calc) [facility] Comment: For patients with diabetes plus 1 major ASCVD risk factor, treating to a non-HDL-C goal of <100 mg/dL (LDL-C of <70 mg/dL) is considered a therapeutic option. Blood Blood / Unknown 12/30/2024 1 1:28 AM EST 12/30/2024 11:29 AM EST Narrative [facility] - 12/31/2024 9:08 AM EST FASTING:NO us Kim Mcbride PA-C LAB - BLOOD DRAW Final Resul t [facility] [address] [address], [facility] [address] [place] [address] * COMPREHENSIVE METABOLIC PANEL (12/30/2024 11:28 AM EST) GLUCOSE 96 65 - 139 mg/dL [facility] Comment: Non-fasting reference interval UREA NITROGEN (BUN) 16 7 - 25 mg/dL [facility] CREATININE (blood) 0.78 0.70 - 1.28 mg/dL [facility] EGFR 95 > OR = 60 mL/min/1. 73m2 [facility] BUN/CREATININE RATIO SEE NOTE: [facility] Comment: Not Reported: BUN and Creatinine are within reference range. SODIUM 139 135 - 146 mmol/L [facility] POTASSIUM 4.4 3.5 - 5.3 mmol/L [facility] CHLORIDE 105 98 - 110 mmol/L [facility] CARBON DIOXIDE 30 20 - 32 mmol/L [facility] CALCIUM 9.5 8.6 - 10.3 mg/dL [facility] PROTEIN, TOTAL 6.6 6.1 - 8.1 g/dL [facility] ALBUMIN 4.5 3.6 - 5.1 g/dL [facility] GLOBULIN 2.1 1.9 - 3.7 g/dL (calc) [facility] ALBUMIN/GLOBULI N RATIO 2.1 1.0 - 2.5 (calc) [facility] BILIRUBIN, TOTAL 0.6 0.2 - 1.2 mg/dL [facility] ALKALINE PHOSPHATASE 68 35 - 144 U/L [facility] AST 16 10 - 35 U/L [facility] ALT 12 9 - 46 U/L [facility] Blood Blood / Unknown 12/30/2024 1 1:28 AM EST 12/30/2024 11:29 AM EST Narrative [facility] - 12/31/2024 9:08 AM EST FASTING:NO Kim Huffa PA-C LAB - BLOOD DRAW Final Resul t Performing Organization Address [facility]/ZIP Co de Phone Number [facility] [address] [address], [facility] [address] [address] * US ABDOMINAL AORTA REAL TIME SCREEN STUDY AAA (03/11/2024 3:00 AM EDT) 03/11/2024 3:00 AM EDT Kim Rae LYNN IMG ULTRASOUND Edited Resul t - Final Performing Organization Address [facility] Co de Phone Number [facility] DI[facility]STIC [facility] Corporate Office [address], [address] [place] [address], * RPR (DIAGNOSIS) WITH REFLEX TO TITER AND CONFIRMATORY TESTING (02/23/2024 10:42 AM EDT) RPR (DX) W/REFL TITER AND CONFIRMATORY TESTING NON-REACT TIMOTEO NON-REACT TIMOTEO [facility] Comment: No laboratory evidence of syphilis. If recent exposure is suspected, submit a new sample in 2-4 weeks. Serum Blood / Unknown 02/23/2024 1 0:42 AM EDT 02/23/2024 10:43 AM EDT Kim Nashabby LYNN LAB - BLOOD DRAW Edited Resu lt - Final Performing Organization Address [facility]/ZIP Co de Phone Number [facility] [address] [address], [facility] [address] [address] * HEPATITIS C AB W/RFLX HCV RNA, QT, RT PCR (02/23/2024 10:42 AM EDT) HEPATITIS C ANTIBODY NON-REACT TIMOTEO NON-REACT TIMOTEO [facility] Comment: HCV antibody was non-reactive. There is no laboratory evidence of HCV infection. In most cases, no further action is required. However, if recent HCV exposure is suspected, a test for HCV RNA (test code 10996) is suggested. For additional information please refer to http://education.[employer] PTY/faq/QLX52j8 (This link is being provided for informational/ educational purposes only.) Blood Blood / Unknown 02/23/2024 1 0:42 AM EDT 02/23/2024 10:43 AM EDT Kim Mcbride PA-C LAB - BLOOD DRAW Edited Resu lt - Final [facility] [address] [place] [address], [facility] [address] [address] from Last 3 Months or Most Recently Relevant to Health Maintenance Insurance [place] [employer] Member Subscriber Plan / Payer ( fective 2021-Present) Name:Raymond Patel Relation to Subscriber:Self Name:Raymond Patel Payer ID:[id number] Group ID:Not on file Type:[facility] Address: [address] [place] [id number] [facility] Care Teams Intelligence Group Supervisor Relationship Specialty Start Date End Date Kim Mcbride PA-C [address] [place] [address] PCP - General FAMILY MEDICINEELXIE 02/23/24
--- OUTSIDE RECORDS SUMMARY | 2025-07-11 11:50 | XMS_ITS | Encounter Summary ---
Author Organization [facility] Address [address] [place] [address] Phone Care Team Providers Care Busperson Name Role Phone Aleida Langley MD Primary Care Provider Encounter Details Date Type Department Care Team (Late st Contact Info) Description 10/15/2021 Procedure Pass [facility]iology [address] [place] [address] Social History Tobacco Use Types Packs/Day Years [...] on filedocumented in this encounter Care Teams Busperson Relationship Specialty Start Date End Date Aleida Langley MD [address] [place] [address] PCP - General Internal Medicine 10/09/20 documented as of this encounter Additional Source Comments The information contained in this document represents components of the legal health record. It is not the complete legal health record.[facility]
== END 2025-07-11 11:40 | disposition home or self-care (01) ==
LOC: HO.HOS 10:05
PROVIDERS: PCP Physician Assistant Medical
DX: G56.03 Carpal tunnel syndrome, bilateral upper limbs (principal); G56.23 Lesion of ulnar nerve, bilateral upper limbs
CPT/HCPCS: 99204

== ENCOUNTER 2025-08-29 10:33 | Outpatient (AMB) | payer OTHER, SELFPAY ==
[2025-08-29 10:47] VITALS: BMI 28.2
--- NOTE | 2025-08-29 10:47 | MHC.OFFVIS ---
Vital Signs 08/29/25 10:47 Height 5 ft 6 in Weight 175 lb BMI 28.2 Intake Visit Reasons: Preop RT cubital/CTR 09/07/25 Intake Note: Raymond is a 69 year old left hand dominant male who presents today pre-operatively for discussion of their Right Cubital & Carpal Tunnel Release scheduled for 09/07/[address] Reed. Consents signed in office today. Allergies No Known Allergies Allergy (Unverified 08/29/25 10:53) HPI HPI Preop RT cubital/CTR 09/07/25: Details: Raymond is a 69 year old left hand dominant male who presents today pre-operatively for discussion of their Right Cubital & Carpal Tunnel Release scheduled for 09/07/[address] Reed. Consents signed in office today. 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 Sleep apnea Sinus bradycardia Osteoarthritis Encounter for long-term (current) use of antibiotics Infection of prosthetic shoulder joint History of ETOH abuse HTN (hypertension) Deep postoperative wound infection Obesity Surgical History (Updated 08/28/25 @ 10:23 by Elvia Holm RN) Hx of bilateral cataract extraction History of surgical removal of ganglion cyst H/O colonoscopy History of bilateral knee replacement Hx of tonsillectomy Hx of appendectomy History of right shoulder replacement History of surgery Social History (Updated 07/11/25 @ 10:27 by CONY Malhotra) Are you a primary career coach to a significant other at home: No Do you presently have visiting nurse or other home services: Yes (cleaning services) Patient Tobacco Use Status: Former Tobacco user Use of substances other than those prescribed or required for medical reasons: Yes Substance Use Frequency: Daily Have you been hit, kicked, punched, or otherwise hurt by someone within the past year? If so, by whom?: No Are you DNR?: No Advance Directives: No Advance Directives Information Provided: No Advance Directives on File: No Review of Systems Const All systems reviewed & are unremarkable except as noted in HPI and below Physical Exam Vital Signs: BMI result Body Mass Index 28.2 Extrem Other: Neuro: Normal sensation of the tips of all digits of bilateral hands in the office today. No thenar or intrinsic wasting. Good APB muscle firing and good finger cross. Vascular: Capillary refill brisk. ROM: Patient can make a fist and extend all their digits. Skin: No lacerations or abrasions noted. General: No ecchymosis. No erythema or evidence of infection. Assessment & Plan Assessment & Plan (1) Bilateral carpal tunnel syndrome: Code(s): G56.03 - Carpal tunnel syndrome, bilateral upper limbs Category: Medical (2) Cubital tunnel syndrome, bilateral: Code(s): G56.23 - Lesion of ulnar nerve, bilateral upper limbs Category: Medical Plan 1. Right cubital tunnel syndrome 2. Right carpal tunnel syndrome Symptoms intermittent, daily, worse at night I educated the patient about the condition. I discussed both operative and nonoperative treatment options. The patient would like to proceed with surgery. The risks and benefits of operative treatment were discussed with the patient and the patient wishes to proceed with surgery. These risks include, but are not limited to, risk of damage to blood vessels, nerves, tendons, infection, recurrence, incomplete relief of preoperative symptoms, persistent pain, possible need for further surgery, and the risks associated with regional blocks and/or anesthesia. Plan is to take the patient to the operating room at some point in the next few weeks for the following procedures: 1. Right cubital tunnel release under general 2. Right carpal tunnel release under general All of the preoperative paperwork including the consent was discussed today. All of the patient's questions were answered in the clinic today. The patient understands that they will be in contact with our operating room surgical technician to discuss scheduling their procedure. Patient denies diabetes, blood thinners, asthma, heart issues, lung issues, kidney issues, or current smoking. 3. Left cubital tunnel syndrome 4. Left carpal tunnel syndrome Patient would like to proceed with operative intervention on the right prior to any intervention of the left Patient is educated that it needs to be 3 months between surgical procedures that are under general anesthesia Patient understands this in his amenable to this plan Coding Level of Care Code Est Pt Level 4 (29501) Diagnoses Bilateral carpal tunnel syndrome G56.03 Cubital tunnel syndrome, bilateral G56.23
--- OUTSIDE RECORDS SUMMARY | 2025-08-29 13:13 | XMS_ITS | Encounter Summary ---
Author Organization [facility] Address [address] [place] [address] Phone Care Team Providers Care Hris Manager Name Role Phone Unknown, Unknown Primary Care Provider Aleida Rios MD Primary Care Provider Encounter Details Date Type Department Care Team (Late st Contact Info) Description 10/02/2020 Procedure Pass [facility], Ct Scan - [address] [address] Social History Tobacco Use Types Packs/Day Years [...] on filedocumented in this encounter Care Teams Hris Manager Relationship Specialty Start Date End Date Unknown, Britney, PCP - General 09/03/20 10/08/20 Aleida Langley MD [address] [place] [address] PCP - General Internal Medicine 10/09/20 documented as of this encounter Additional Source Comments The information contained in this document represents components of the legal health record. It is not the complete legal health record.[facility]
--- OUTSIDE RECORDS SUMMARY | 2025-08-29 13:13 | XMS_ITS | Encounter Summary ---
Author Organization [facility] Address [address] [facility] [address] [place] [address] Phone Care Team Providers Care Ged Tutor Name Role Phone Unknown, Unknown Primary Care Provider Aleida Rios MD Primary Care Provider Encounter Details Date Type Department Care Team (Late st Contact Info) Description 09/04/2020 Ancillary Orders [facility],Outside Imaging 30 [place], [place] [phone] System, Provider Not In, [facility] [address] [address] Social History Tobacco Use Types Packs/Day Years [...] on filedocumented in this encounter Care Teams Ged Tutor Relationship Specialty Start Date End Date Unknown, Unknown, PCP - General 09/03/20 10/08/20 Aleida Langley MD 40 [place], [place] [phone] PCP - General Internal Medicine 10/09/20 documented as of this encounter Additional Source Comments The information contained in this document represents components of the legal health record. It is not the complete legal health record.[facility]
--- OUTSIDE RECORDS SUMMARY | 2025-08-29 13:13 | XMS_ITS | Encounter Summary ---
Author Organization [facility] Address [address] [place] [address] Phone Care Team Providers Care Finisher Polisher Name Role Phone Aleida Langley MD Primary Care Provider Encounter Details Date Type Department Care Team (Late st Contact Info) Description 01/17/2021 Procedure Pass OR Admitting Dept - [facility] Department [address] [place] [address] Social History Tobacco Use Types Packs/Day Years [...] on filedocumented in this encounter Care Teams Finisher Polisher Relationship Specialty Start Date End Date Aleida Langley MD [address] [place] [address] PCP - General Internal Medicine 10/09/20 documented as of this encounter Additional Source Comments The information contained in this document represents components of the legal health record. It is not the complete legal health record.[facility]
--- OUTSIDE RECORDS SUMMARY | 2025-08-29 13:13 | XMS_ITS | Encounter Summary ---
Author Organization [facility] Address [address] [facility] [address] [place] [address] Phone Care Team Providers Care Assistant Name Role Phone Aleida Langley MD Primary Care Provider Encounter Details Date Type Department Care Team (Late st Contact Info) Description 06/13/2021 Procedure Pass [facility] Cardiovascular And Interventional Radiology 30 [place] [address] Social History Tobacco Use Types Packs/Day Years [...] 2:54 PM EDT Roslyn Weller RN * [place] Suicide Severity Rating Scale (Screener/Recent Self-Report) Question [...] filedocumented in this encounter Care Teams Assistant Relationship Specialty Start Date End Date Aleida Langley MD [address] [place] [phone] PCP - General Internal Medicine 10/09/20 documented as of this encounter Additional Source Comments The information contained in this document represents components of the legal health record. It is not the complete legal health record.[facility]
--- OUTSIDE RECORDS SUMMARY | 2025-08-29 13:14 | XMS_ITS | Clinical Summary ---
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 and body mass index (BMI) of 33.0 to 33.9 in adult 02/23/2024 Overview (02/23/2024): 33.5 as of 02/16/2021 History of ETOH abuse 02/23/2024 Osteoarthritis of knee 02/23/2024 Sinus bradycardia 02/23/2024 KIMBERLY on CPAP 02/23/2024 manager terminal (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 Pham, [facility] Essential hypertension 11/02/2017 Overview (02/23/2024): Last Assessment & Plan: The patient has been off medication for some time after a significant weight loss from the 260s down to around 165. His weight has snuck back up to the 195 range recently but his blood pressure is reasonable. No medications are indicated Encounters Date Type Department Care Team Description 08/17/[address] [facility] [address] [place] [phone] Sejal De Oliveira [place] 08/16/2025 9:20 AM EDT Office Visit [address] [phone] Tobias Olson MD 08/16/2025 Interim Notes [address] [address] Lissett Kevin [place] 08/16/2025 Interim Notes [address] [phone] Lissett Kevin MARILYN 08/04/2025 10:20 AM EDT Office Visit [address] [phone] Kim Mcbride PA-C 08/01/2025 10:20 AM EDT Office Visit [address] [phone] Ralph Farias, JEREMY 07/14/2025 1:40 PM EDT Office Visit [address] [phone] Ralph Farias, JEREMY 07/08/2025 11:40 AM EDT Office Visit [address] [phone] Ralph Farias, JEREMY 07/08/2025 11:00 AM EDT Office Visit [address] [phone] Haja Curiel, [facility] 06/24/2025 11:00 AM EDT Office Visit [address] [phone] Ralph Farias, JEREMY from Last 3 Months Immunizations Immunization Administration Dates Next Due INFLUENZA, SEASONAL, INJECTABLE 12/15/2022,08/10,01/18/2019 Influenza (FLUZONE), high-do se, trivalent, PF 08/26/2024 PNEUMOCOCCAL CONJUGATE PCV 13 01/18/2019 PNEUMOCOCCAL CONJUGATE PCV 20 (Prevnar 20) 02/22 Pfizer COVID vaccine, SHIVA GERMAN, emily cap, 12+ 01/30/2022 Pfizer-BioNTech COVID-19 Vac cine Bivalent, (HALL PFIZER-BIONTECH COVID-19 VACCINE BIVALENT, (HALL CAP 12/15/2022 TDAP 03/22/2018 ZOSTER VACCINE, RECOMBINANT (SHINGRIX) ,02/23/2024 Family History Medical History Relation Name Comments Prostate Cancer Father Relation Name Status Comments Father Social History Tobacco Use Types Packs/Day Years Used Date Smoking Tobacco: Former Passive Smoke Exposure: Never Smokeless Tobacco: Never Tobacco Cessation:Counseling Given: Not Answered Comments:Smoked for 15 years Alcohol Use Standard [...] Sign Reading Time Taken Comments Blood Pressure 144/80 08/16/2025 9:12 AM EDT Pulse 53 08/16/2025 9:12 AM EDT Temperature 36.7 C (98 F) 08/16/2025 9:12 AM EDT Respiratory Rate 16 08/16/2025 9:12 AM EDT Oxygen Saturation 96% 08/16/2025 9:12 AM EDT Inhaled Oxygen Concentration - - Weight 84.4 kg (186 lb) 08/16/2025 9:12 AM EDT Height 165.1 cm (5' 5 ) 08/16/2025 9:12 AM EDT Body Mass Index 30.95 08/16/2025 9:12 AM EDT Plan of Treatment Upcoming Encounters Date Type Department Care Team (Late st Contact Info) Description 09/18/2025 1:00 PM EST Office Visit [facility] [address] [place] [address] Macie FariasisJEREMY [address] [place] [address] 09/26/2025 3:00 PM EST Office Visit [facility] [address] [place] [phone] Kim Mcbride PA-C [address] [place] [address] 10/11/2025 8:40 AM EST Office Visit [facility] [address] [place] [phone] Tobias Olson MD [address] [place] [address] Health Maintenance Due Date Last Done Comments CT Colonography 1998 Colonoscopy 1998 Colorectal Cancer Screening 1998 FIT/gFOBT 1998 Fecal DNA 1998 Flexible Sigmoidoscopy 1998 Falls Prevention 02/22/2025 02/23/2024 Syphilis Screening 02/22/2025 02/23/2024 [id number] ( season) 2025 12/15/2022, 01/30/2022, 04/11/2021, Additional history exists Imm-Influenza (#1) 2025 08/26/2024, 0 12/15/2022, 08/10/2019, Additional history exists Dental BW 07/10/2026 07/08/2025, 10/02/2022 Dental Examination 07/10/2026 07/08/2025, 0 06/11/2023, 10/02/2022 Dental Perio Charting 07/10/2026 07/08/2025 Dental Prophy 07/10/2026 07/08/2025, 08/, 10/02/2022 Tobacco Screening 08/16/2026 08/16/2025 Diabetes Screening 12/30/2027 12/30/2024, 0 02/23/2024, 11/26/2020 Lipid Screening 12/30/2027 12/30/2024, 02/23/2024 Imm-DTaP/Tdap/Td (2 - Td or Tdap) 03/22/2028 018 Dental FMX/Pano 01/13/2030 01/11/2025, 11/13/2022 Hepatitis C Screening Completed 02/23/2024 Imm-Pneumococcal 50+ Completed 02/23/2024, 01/19/20 Abdominal Aortic Aneurysm Screening Completed 03/11/2024 Alcohol and Drug Screen Completed 12/30/2024, 02/22 Depression Annual Screen Completed 12/30/2024 Imm-Zoster, Recombinant Completed 12/30/2024, 02/22 Procedures Procedure Name Priority Date/Time Associated Diagnosis Comments CARD SCANNED DOCUMENT 08/23/2025 3:00 AM EDT CARD SCANNED DOCUMENT 08/16/2025 3:00 AM EDT REFERRAL TO ORTHOPEDICS Routine 07/11/2025 3:00 AM EDT Status post total shoulder arthroplasty, right Closed nondisplaced fracture of right clavicle, unspecified part of clavicle, initial encounter DENTAL CASE MANAGEMENT - MOTIVATIONAL INTV Routine [...] AM EDT Partial edentulism, unspecified edentulism class PANORAMIC [...] Recently Relevant to Health Maintenance Results * CARD SCANNED DOCUMENT (08/23/2025 3:00 AM EDT) Only the most recent of2 resultswithin the time period is included. 08/23/2025 3:00 AM EDT us Kim Mcbride PA-C SCAN ECGS Final Result * REFERRAL TO ORTHOPEDICS (07/11/2025 3:00 AM EDT) 07/11/2025 3:00 AM EDT us Rosimar Mcbride PA-C REFERRAL Final Result * LIPID PANEL (12/30/2024 11:28 AM EST) CHOLESTEROL, TOTAL 190 <200 mg/dL [facility] HDL CHOLESTEROL 80 > OR = 40 mg/dL [facility] TRIGLYCERIDES 69 <150 mg/dL [facility] LDL-CHOLESTEROL 94 99 mg/dL (calc) [facility] Comment: Reference range: <100 Desirable range <100 mg/dL for primary prevention; <70 mg/dL for patients with CHD or diabetic patients with > or = 2 CHD risk factors. LDL-C is now calculated using the Raghu calculation, which is a validated novel method providing better accuracy than the Friedewald equation in the estimation of LDL-C. Angel SS et al. [place]RA[place]. 2013;310(98): 7272-6598 (http://education.[employer]/faq/KHO896) CHOL/HDLC RATIO 2.4 <5.0 (calc) [facility] NON-HDL CHOLESTEROL 110 <130 mg/dL (calc) [facility] Comment: For patients with diabetes plus 1 major ASCVD risk factor, treating to a non-HDL-C goal of <100 mg/dL (LDL-C of <70 mg/dL) is considered a therapeutic option. Blood Blood / Unknown 12/30/2024 1 1:28 AM EST 12/30/2024 11:29 AM EST Narrative [facility] - 12/31/2024 9:08 AM EST FASTING:NO us Kim Mcbride PA-C LAB - BLOOD DRAW Final Resul t [facility] [address] [address], [facility] [address] [place] [address] * COMPREHENSIVE METABOLIC PANEL (12/30/2024 11:28 AM EST) GLUCOSE 96 65 - 139 mg/dL [facility] Comment: Non-fasting reference interval UREA NITROGEN (BUN) 16 7 - 25 mg/dL [facility] CREATININE (blood) 0.78 0.70 - 1.28 mg/dL [facility] EGFR 95 > OR = 60 mL/min/1. 73m2 [facility] BUN/CREATININE RATIO SEE NOTE: [facility] Comment: Not Reported: BUN and Creatinine are within reference range. SODIUM 139 135 - 146 mmol/L [facility] POTASSIUM 4.4 3.5 - 5.3 mmol/L [facility] CHLORIDE 105 98 - 110 mmol/L [facility] CARBON DIOXIDE 30 20 - 32 mmol/L [facility] CALCIUM 9.5 8.6 - 10.3 mg/dL [facility] PROTEIN, TOTAL 6.6 6.1 - 8.1 g/dL [facility] ALBUMIN 4.5 3.6 - 5.1 g/dL [facility] GLOBULIN 2.1 1.9 - 3.7 g/dL (calc) [facility] ALBUMIN/GLOBULI N RATIO 2.1 1.0 - 2.5 (calc) [facility] BILIRUBIN, TOTAL 0.6 0.2 - 1.2 mg/dL [facility] ALKALINE PHOSPHATASE 68 35 - 144 U/L [facility] AST 16 10 - 35 U/L [facility] ALT 12 9 - 46 U/L [facility] Blood Blood / Unknown 12/30/2024 1 1:28 AM EST 12/30/2024 11:29 AM EST Narrative [facility] - 12/31/2024 9:08 AM EST FASTING:NO Kim Mcbride PA-C LAB - BLOOD DRAW Final Resul t [facility] [address] [address], [facility] [address] [address] * US ABDOMINAL AORTA REAL TIME SCREEN STUDY AAA (03/11/2024 3:00 AM EDT) 03/11/2024 3:00 AM EDT us Kim Mcbride PA-C IMG ULTRASOUND Edited Resul t - Final [facility] Corporate Office [address], [address] [place] [address], * RPR (DIAGNOSIS) WITH REFLEX TO TITER AND CONFIRMATORY TESTING (02/23/2024 10:42 AM EDT) RPR (DX) W/REFL TITER AND CONFIRMATORY TESTING NON-REACT TIMOTEO NON-REACT TIMOTEO [facility] Comment: No laboratory evidence of syphilis. If recent exposure is suspected, submit a new sample in 2-4 weeks. Serum Blood / Unknown 02/23/2024 1 0:42 AM EDT 02/23/2024 10:43 AM EDT us Kim Mcbride PA-C LAB - BLOOD DRAW Edited Resu lt - Final Performing Organization Address [facility] Co de Phone Number [employer] [address] [place] [address], [email or web address] [address] [address] * HEPATITIS C AB W/RFLX HCV RNA, QT, RT PCR (02/23/2024 10:42 AM EDT) HEPATITIS C ANTIBODY NON-REACT TIMOTEO NON-REACT TIMOTEO [facility] Comment: HCV antibody was non-reactive. There is no laboratory evidence of HCV infection. In most cases, no further action is required. However, if recent HCV exposure is suspected, a test for HCV RNA (test code 87532) is suggested. For additional information please refer to http://education.[employer]/faq/KNN63b3 (This link is being provided for informational/ educational purposes only.) Blood Blood / Unknown 02/23/2024 1 0:42 AM EDT 02/23/2024 10:43 AM EDT Kim Mcbride PA-C LAB - BLOOD DRAW Edited Resu lt - Final Performing Organization Address [facility] Co de Phone Number [facility] [address] [address], [email or web address] [address] [address] from Last 3 Months or Most Recently Relevant to Health Maintenance Insurance [place] MED[place] HUMANA HUMANA DENTAL COM Care Teams Gyroscopic Engineering Technician Relationship Specialty Start Date End Date Kim Mcbride PA-C [address] [place] [address] PCP - General FAMILY MEDICINELEXIE 02/23/24
--- OUTSIDE RECORDS SUMMARY | 2025-08-29 13:14 | XMS_ITS | Encounter Summary ---
Author Organization [facility] Address [address] [place] [address] Care Team Providers Care Molder Labels Name Role Phone Kim Mcbride PA-C Primary Care Provider Encounter Details Date Type Department Care Team (Late st Contact Info) Description 03/27/2022 Dental Interim Note [facility] [address] [place] [address] Pedro Hollins DDS [address] [place] [address] Social History Tobacco Use Types Packs/Day Years [...] Description 09/18/2025 1:00 PM EST Office Visit [facility] [address] [place] [phone] Ralph FariasJEREMY [address] [place] [address] 09/26/2025 3:00 PM EST Office Visit [facility] [address] [place] [phone] Kim Mcbride PA-C [address] [place] [address] 10/11/2025 8:40 AM EST Office Visit [facility] [address] [place] [address] Tobias Olson MD [address] [place] [address] documented as of this encounter Visit Diagnoses Not on filedocumented in this encounter Care Teams Molder Labels Relationship Specialty Start Date End Date Kim Mcbride PA-C [address] [place] [address] PCP - General FAMILY MEDICINELEXIE 02/23/24 documented as of this encounter
--- OUTSIDE RECORDS SUMMARY | 2025-08-29 13:14 | XMS_ITS | Encounter Summary ---
Author Organization [facility] Address [address] [facility] [address] [place] [address] Phone Care Team Providers Care Barn Boss Name Role Phone Aleida Langley MD Primary Care Provider Encounter Details Date Type Department Care Team (Late st Contact Info) Description 02/18/2021 Procedure Pass [facility] Cardiovascular And Interventional Radiology [address] [place] [address] Social History Tobacco Use Types Packs/Day Years [...] 1:14 PM EDT Sammi Villanueva CNP * [place] Suicide Severity Rating Scale (Screener/Recent Self-Report) Question [...] on filedocumented in this encounter Care Teams Barn Boss Relationship Specialty Start Date End Date Aleida Langley MD [address] [place] [address] PCP - General Internal Medicine 10/09/20 documented as of this encounter Additional Source Comments The information contained in this document represents components of the legal health record. It is not the complete legal health record.[facility]
--- OUTSIDE RECORDS SUMMARY | 2025-08-29 13:14 | XMS_ITS | Encounter Summary ---
Author Organization [facility] Address [address] [facility] [address] [place] [address] Phone Care Team Providers Care Tube Man Name Role Phone Aleida Langley MD Primary Care Provider Encounter Details Date Type Department Care Team (Late st Contact Info) Description 09/03/2021 Procedure Pass [facility] Cardiovascular And Interventional Radiology [address] [place] [address] Social History Tobacco Use Types Packs/Day Years [...] on filedocumented in this encounter Care Teams Tube Man Relationship Specialty Start Date End Date Aleida Langley MD [address] [place] [address] PCP - General Internal Medicine 10/09/20 documented as of this encounter Additional Source Comments The information contained in this document represents components of the legal health record. It is not the complete legal health record.[facility]
--- OUTSIDE RECORDS SUMMARY | 2025-08-29 13:14 | XMS_ITS | Encounter Summary ---
Author Organization [facility] Address [address] [place] [address] Care Team Providers Care Shaft Sinker Name Role Phone Kim Mcbride PA-C Primary Care Provider Reason for Visit * Reason Comments Testing Holter monitor Encounter Details Date Type Department Care Team (Late st Contact Info) Description 08/16/2025 Interim Notes [facility] [address] [place] [phone] [facility] [place] [address] [place], [place] [phone] Social History Tobacco Use Types Packs/Day Years Used Date Smoking Tobacco: Former Passive Smoke Exposure: Never Smokeless Tobacco: Never Comments:Smoked for 15 years [...] as of this encounter Progress Notes * Lissett Kevin MA - 08/24/2025 2:28 PM EDT 08/24/25 contacted [employer] phone # [phone] ext [phone]. Was told that Holter monitor was mailed to the pt's address [address] [place] [phone] And 08/18/25 was delivered to the patient. * Lissett Kevin MA - 08/24/2025 2:28 PM EDT 08/16/25 Registered pt on [employer] Pt will get Holter monitor by mail and use it for 7 days. Instructions given to the pt. documented in this encounter Plan of Treatment Upcoming Encounters Date Type Department Care Team (Late st Contact Info) Description 09/18/2025 1:00 PM EST Office Visit [facility] [address] [place] [phone] Ralph Farias DMD [address] [place] [address] 09/26/2025 3:00 PM EST Office Visit [address] [place] [phone] Kim Mcbride PA-C [address] [place] [address] 10/11/2025 8:40 AM EST Office Visit [facility] [address] [place] [address] Tobias Olson MD [address] [place] [address] documented as of this encounter Visit Diagnoses Not on filedocumented in this encounter Additional Health Concerns Assessment Noted Time PHQ-9 Depression Total Score: 0 12/30/19 25 11:05 AM PST documented as of this encounter Care Teams Shaft Sinker Relationship Specialty Start Date End Date Kim Mcbride PA-C [address] [place] [address] PCP - General FAMILY MEDICINELEXIE 02/23/24 documented as of this encounter
--- OUTSIDE RECORDS SUMMARY | 2025-08-29 13:14 | XMS_ITS | Patient Health Record ---
Author Organization [facility] Address [address] [place] [address] Care Team Providers Care Contract Assistant Name Role Phone Kareem INMAN, Nisha Primary Care Provider Dino Guevara [phone] Reason For Referral No Information Medications Medication SIG (Take, Route, Frequency, Duration) Notes Start Date End Date Status Diclofenac Sodium Ac tive MoviPrep 100 GM as directed Orally a s directed; Duration: 1 dose 12/23/2014 Activ e Lisinopril-hydroCHLOROthia zide Active Problems Problem Type SNOMED Code ICD Code Onset Dates Problem Status W/U Status Risk Notes Problem ferry terminal agent current use of non-steroidal anti-inflammat ory drug (situation) (8857083049505 03) Long-term (current) use of nonsteroidal anti-inflammatori es (NSAID) (V58.64) Active confirmed Problem Colon cancer screening (107368253) Colon cancer screening (V76.51) Active confirmed Problem History of polyp of colon (060128429) H/O adenomatous polyp of colon (V12.72) Active confirmed Plan Of Treatment Future Test Test Name Order Date COLONOSCOPY 11/10/2014 Insurance Providers Payer Name Payer Address Payer Phone Subscriber Number Group Number Insured Name Patient Relationship to Insured Coverage Start Date Coverage End Date [facility] [address] [place] [phone] [id number] BETTY CORREIA Self - patient is the insured Medical (General) History Medical History History ICD Code Screening colonoscopy in 200 2 revealed a 2 cm tubular adenoma removed from the sigmoid colon. He had a negative colonoscopy in 2004 and 2008, other than some diverticulosis and internal hemorrhoids Diverticulosis Thalassemia Denies DC,DM,CVA,Lung disease,renal dise ase HTN Surgical History Surgery Date(Month/Year) Appendectomy Tonsillectomy Left knee arthroscopy He'll be having knee replacements in the 2014
--- OUTSIDE RECORDS SUMMARY | 2025-08-29 13:14 | XMS_ITS | Encounter Summary ---
Author Organization [facility] Address [address] [facility] [address] [place] [phone] Phone Care Team Providers Care Heating And Refrigeration Inspector Name Role Phone Aleida Langley MD Primary Care Provider Encounter Details Date Type Department Care Team (Late st Contact Info) Description 02/18/2021 Procedure Pass [facility]ovascular [facility] Interventional [facility] [address] [place] [address] Social History Tobacco Use Types Packs/Day Years [...] 1:14 PM EDT Sammi Villanueva CNP * [place] Suicide Severity Rating Scale (Screener/Recent Self-Report) Question [...] on filedocumented in this encounter Care Teams Heating And Refrigeration Inspector Relationship Specialty Start Date End Date Aleida Langley MD [address] [place] [phone] PCP - General Internal Medicine 10/09/20 documented as of this encounter Additional Source Comments The information contained in this document represents components of the legal health record. It is not the complete legal health record.[facility]
--- OUTSIDE RECORDS SUMMARY | 2025-08-29 13:14 | XMS_ITS | Encounter Summary ---
Author Organization [facility] Address [address] [facility] [address] [place] [address] Phone Care Team Providers Care Data Systems Manager Name Role Phone Aleida Langley MD Primary Care Provider Encounter Details Date Type Department Care Team (Late st Contact Info) Description 02/14/2021 Procedure Pass [place] Admitting Dept - [facility] Department [address] [place] [address] Social History Tobacco Use Types Packs/Day Years [...] 12:18 PM EDT Heidi Mckoy RN * [place] Suicide Severity Rating Scale (Screener/Recent Self-Report) Question Answer Date of Assessment Author 1. Wish to be (Past 1 Month) No 021 12:18 PM CHITOT Heidi Álvarez RN 2. Non-Specific Active Suici derrell Thoughts (Past 1 Month) No 02/14/2021 12:18 PM CHITOT Romi Álvarez RN 6. Suicidal Behavior (Lifetime) No 12:18 PM EDT Hat[place], Heidi, RN documented as of this encounter Plan of Treatment Not on file documented as of this encounter Visit Diagnoses Not on filedocumented in this encounter Care Teams Data Systems Manager Relationship Specialty Start Date End Date Aleida Langley MD [address] [place] [address] PCP - General Internal Medicine 10/09/20 documented as of this encounter Additional Source Comments The information contained in this document represents components of the legal health record. It is not the complete legal health record.[facility]
--- OUTSIDE RECORDS SUMMARY | 2025-08-29 13:14 | XMS_ITS | Encounter Summary ---
Author Organization [facility] Address [address] [facility] [address] [place] [phone] Phone Care Team Providers Care Speech Pathology Teacher Name Role Phone Aleida Langley MD Primary Care Provider Encounter Details Date Type Department Care Team (Late st Contact Info) Description 02/18/2021 Procedure Pass [facility] Cardiovascular And Interventional Radiology [address] [place] [address] Social History Tobacco Use Types Packs/Day Years [...] 1:14 PM EDT Sammi Villanueva CNP * [place] Suicide Severity Rating Scale (Screener/Recent Self-Report) Question [...] on filedocumented in this encounter Care Teams Speech Pathology Teacher Relationship Specialty Start Date End Date Aleida Langley MD [address] [place] [id number] PCP - General Internal Medicine 10/09/20 documented as of this encounter Additional Source Comments The information contained in this document represents components of the legal health record. It is not the complete legal health record.[facility]
--- OUTSIDE RECORDS SUMMARY | 2025-08-29 13:14 | XMS_ITS | Encounter Summary ---
Author Organization [facility] Address [address] [facility] [address] [place] [address] Phone Care Team Providers Care Dictating Machine Mechanic Name Role Phone Aleida Langley MD Primary Care Provider Encounter Details Date Type Department Care Team (Late st Contact Info) Description 06/13/2021 Procedure Pass OR Admitting Dept - [facility] Department [address] [place] [address] Social History Tobacco Use Types Packs/Day Years [...] 2:54 PM EDT Roslyn Weller RN * [place] Suicide Severity Rating Scale (Screener/Recent Self-Report) Question [...] on filedocumented in this encounter Care Teams Dictating Machine Mechanic Relationship Specialty Start Date End Date Aleida Langley MD [address] [place] [phone] PCP - General Internal Medicine 10/09/20 documented as of this encounter Additional Source Comments The information contained in this document represents components of the legal health record. It is not the complete legal health record.[facility]
--- OUTSIDE RECORDS SUMMARY | 2025-08-29 13:14 | XMS_ITS | Clinical Summary ---
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 Pham, [facility] Preop examination 12/04/2020 Assessment & Plan (12/04/2020 12:09 PM EST): This is a 65-year-old patient of Dr.Cuevas Foss at [facility] and Dr. Pham seen at the surgical optimization clinic for planned right shoulder arthroplasty on 01/17. This is a very active 65-year-old male with excellent exercise tolerance. His risk calculators show a Trejo score of 0.2% chance of cardiac issues perioperatively or in the first 30 days. His RCRI score is congruent with this at 0.4% chance of SC, CHF, or arrhythmia perioperatively. This is considered [...] study 2 to 3 months ago at [place] and he has not been restarted on [...] this topic Medical Devices Implanted Type Area Oceanography Teacher Device Identifier Shelf Expiration Date Model / Serial / Lot Right Shoulder NODATA Right: Shoulder Description:Unknown hardware from prior surgery Bilateral Knees Prosthetic Joint Prosthetic Joint Bilateral: Knee Shoulder Implant 30mm Md Component Glenoid Aequalis Perform Cortiloc - [id number] Implanted:Qty : 1 on 01/17/2021 by Vamsi Pham DO at [facility] STANDARD Right: Acromial Process [employer] 04/20/2022 [id number] / [id number] / Cement Bone Biomet Standard R 1x40 Us - [id number] Implanted:Qty : 1 on 01/17/2021 by Vamsi Pham DO at [facility] Right: Acromial Process MINESH / DIV OF [employer] 06/29/2025 [id number] / / [id number] Shoulder Simpliciti Size 2 Nucleus Humeral System - [id number] Implanted:Qty : 1 on 01/17/2021 by Vamsi Pham DO at [facility] Right: Acromial Process [employer] 11/16/2024 [id number] / [id number] / Shoulder [id number] Prosthesis Simpliciti - [id number] Implanted:Qty : 1 on 01/17/2021 by Vamsi Pham DO at [facility] Right: Acromial Process [employer] 03/26/2025 [id number] / [id number] / Cement Bone Biomet Standard R 1x40 Us - [id number] Implanted:Qty : 1 on 06/13/2021 by Vamsi Pham DO at [facility] Right: Shoulder MINESH / DIV OF [employer]ST[employer] 08/01/2025 [id number] / / [id number] Cement Bone Biomet Standard R 1x40 - [id number] Implanted:Qty : 1 on 06/13/2021 by Vamsi Pham DO at [facility] Right: Shoulder MINESH / DIV OF [employer]ST[employer] SQU[employer] 04/01/2024 [id number] / / [id number] Insurance [employer] PPO MEDICARE REPLACEMENT [employer] PPO MEDICARE REPLACEMENT [employer] PPO MEDICARE REPLACEMENT O MEDICARE REPLACEMENT O MEDICARE REPLAC[facility] RE[facility] MEDIC[facility] REPLAC[facility] MEDIC[facility] REPLAC[facility] Advance Directives For more information, please contact: [phone] (9AM - 5PM [facility], Thursday-Thursday) Documents on File Type Date Recorded Patient House Mother Expl anation Healthcare Proxy 02/20/2021 1:52 PM * Full Code (Latest Code Status on File) Date Activated Date Inactivated Comments 02/14/2021 1:12 PM Question Answer Comments Code Status Confirmed With: Patient Care Teams Counter Tacker Relationship Specialty Start Date End Date Aleida Langley MD [address] [place] [address] [phone] PCP - General Internal Medicine 10/09/20 Additional Source Comments The information contained in this document represents components of the legal health record. It is not the complete legal health record.[facility]
--- OUTSIDE RECORDS SUMMARY | 2025-08-29 13:14 | XMS_ITS | Encounter Summary ---
Author Organization [facility] Address [address] [facility] [address] [place] [address] Phone Care Team Providers Care Brown Stock Washer Name Role Phone Aleida Langley MD Primary Care Provider Encounter Details Date Type Department Care Team (Late st Contact Info) Description 06/14/2021 Procedure Pass [facility] Cardiovascular And Interventional Radiology [address] [place] [address] Social History Tobacco Use Types Packs/Day Years [...] on filedocumented in this encounter Care Teams Brown Stock Washer Relationship Specialty Start Date End Date Aleida Langley MD [address] [place] [address] PCP - General Internal Medicine 10/09/20 documented as of this encounter Additional Source Comments The information contained in this document represents components of the legal health record. It is not the complete legal health record.[facility]
--- OUTSIDE RECORDS SUMMARY | 2025-08-29 13:15 | XMS_ITS | Encounter Summary ---
Author Organization [facility] Address [address] [facility] [address] [place] [address] Phone Care Team Providers Care Entry Specialist Name Role Phone Aleida Langley MD Primary Care Provider Encounter Details Date Type Department Care Team (Late st Contact Info) Description 10/15/2021 Procedure Pass [facility] Cardiovascular And Interventional Radiology [address] [place] [address] Social History Tobacco Use Types Packs/Day Years [...] on filedocumented in this encounter Care Teams Entry Specialist Relationship Specialty Start Date End Date Aleida Langley MD [address] [place] [address] PCP - General Internal Medicine 10/09/20 documented as of this encounter Additional Source Comments The information contained in this document represents components of the legal health record. It is not the complete legal health record.[facility]
--- OUTSIDE RECORDS SUMMARY | 2025-08-29 13:15 | XMS_ITS | Clinical Summary ---
Author Organization [address] [facility] Address [address] [place] [address] Phone Care Team Providers Care Detention Officer Name Role Phone Maryan Diallo Primary Care Provider [phone] Allergies No known active allergies Medications No known medications Encounters Date Type Department Care Team Description 07/21/2025 Telephone Orthopedic Surgery - [place] [address] [facility] [address] [place] [address] Rebeca Santa MA from Last 3 Months Surgical History Surgery Date Site/Laterality Comments SHOULDER SURGERY Right GANGLION CYST EXCISION Social History Tobacco Use Types Packs/Day Years Used Date Smoking Tobacco: Never Assessed Sex and Gender Information Value Date Recorded Sex Assigned at Not on file Legal Sex Male 7:49 AM EST Gender Identity Not on file Sexual Orientation Not on file Obstetrics History Last Filed Vital Signs Vital Sign Reading Time Taken Comments Blood Pressure - - Pulse - - Temperature - - Respiratory Rate - - Oxygen Saturation - - Inhaled Oxygen Concentration - - Weight 79.4 kg (175 lb) 04/12/2025 9:42 AM EDT Height 167.6 cm (5' 6 ) 04/12/2025 9:42 AM EDT Body Mass Index 28.25 04/12/2025 9:42 AM EDT Plan of Treatment Health Maintenance Due Date Last Done Comments Colorectal Cancer Screening: Colonoscopy 1955 [place] Risk Assessment 05/24/2024 Medicare Annual Wellness Visit 05/24/2024 Social Influencers of Health Screening 05/24/2024 Depression Screening 11/02/2024 COVID-19 Vaccine ( season) 2025 12/15/2022, 01/30/2022, 04/11/2021, Additional history exists Influenza Vaccine (#1) 2025 , 12/15/2022, 08/10/2019, Additional history exists Hypertension/CHF/CAD Annual BMP Blood Test 12/30/2025 12/30/2024, 03/14/2021, 03/07/2021, Additional history exists DTaP,Tdap,and Td Vaccines (2 - Td or Tdap) 03/22/2028 03/22/2018 RSV Immunization Adult Patients (1 - 1-dose 75+ series) 2028 Cholesterol Screening (Lipid Panel) 12/30/2029 12/30/2024, 12/30/2024, 02/23/2024 Hepatitis C Screening Completed 02/23/2024 Pneumococcal Vaccine: 50+ Years Completed 02/23/2024, 01/18/2019 Abdominal Aortic Aneurysm (AAA) Screen Completed 03/11/2024, 03/11/2024 Zoster Vaccines Completed 12/30/2024, 02/23/2024 HIB Vaccines Aged Out No longer eligi ble based on patient's age to complete this topic HPV Vaccines Aged Out No longer eligi ble based on patient's age to complete this topic Hepatitis A Vaccines Aged Out No long er eligible based on patient's age to complete this topic Hepatitis B Vaccines Aged Out No long er eligible based on patient's age to complete this topic IPV Vaccines Aged Out No longer eligi ble based on patient's age to complete this topic MMR Vaccines Aged Out No longer eligi ble based on patient's age to complete this topic Meningococcal ACWY Vaccine Aged Out N o longer eligible based on patient's age to complete this topic Meningococcal B Vaccine Aged Out No l onger eligible based on patient's age to complete this topic RSV Immunization Patients Under 20 months Aged Out No longer eligible based on patient's age to complete this topic Varicella Vaccines Aged Out No longer eligible based on patient's age to complete this topic Procedures Procedure Name Priority Date/Time Associated Diagnosis Comments US ABDOMEN AORTA SCR STUDY AAA Routine 03/11/2024 11:03 AM EDT Encounter for screening for cardiovascular disorders from Last 3 Months or Most Recently Relevant to Health Maintenance Results * US ABDOMEN AORTA SCR STUDY AAA (03/11/2024 11:03 AM EDT) Anatomical Region Laterality Modality Ultrasound 03/11/2024 9:01 AM EDT Narrative 03/11/2024 11:03 AM EDT [facility] Diagnostic Imaging Department [address] [place] [address] Patient: BETTY PATEL /Age/Sex: 1955 - 68 - M Unit#: [id number] Location/Status: [facility] Mnemonic/Ordering Site: [facility] Ordering Physician: MARYAN DIALLO PA-C US Abdomen Aorta Scr Study AAA - 03/11/24916 Report Status:Signed HISTORY: The patient is a 68-year-old male former smoker, undergoing evaluation for an abdominal aortic aneurysm. FINDINGS: Real-time ultrasonography of the abdominal aorta is performed. The aorta is normal in caliber, with the suprarenal aorta measuring 2.7 cm in AP dimension x 2.1 cm in transverse dimension; the proximal infrarenal aorta measuring 2.2 x 2.0 cm; and the distal infrarenal aorta measuring 2.0 x 1.7 cm. The common iliac arteries are also normal in caliber, with the right MARTHA measuring 1.4 cm and the left MARTHA measuring 1.3 cm. No plaque formation is seen. IMPRESSION: The abdominal aorta is normal in caliber, without evidence of aneurysm. Code 27908 G9551 Dictating Physician: ALFREDO VALENTE MD Electronically Signed by: ALFREDO VALENTE MD Dic Date/Time: 03/11/24 1100 Sign date/Time: 03/11/24 1103 Procedure Note Alfredo Valente MD - 06/20/2024 [facility] Diagnostic Imaging Department [address] [place] [address] Patient: BETTY PATEL /Age/Sex: 1955 - 68 - M Unit#: [id number] Location/Status: [facility] Mnemonic/Ordering Site[facility] Ordering Physician: MARYAN DIALLO PA-C US Abdomen Aorta Scr Study AAA - 03/11/24916 Report Status:Signed HISTORY: The patient is a 68-year-old male former smoker, undergoingevaluation for an abdominal aortic aneurysm. FINDINGS: Real-time ultrasonography of the abdominal aorta is performed.The aorta is normal in caliber, with the suprarenal aorta measuring 2.7 cm inAP dimension x 2.1 cm in transverse dimension; the proximal infrarenalaorta measuring 2.2 x 2.0 cm; and the distal infrarenal aorta measuring 2.0 x1.7 cm. The common iliac arteries are also normal in caliber, with the right MARTHA measuring 1.4 cm and the left MARTHA measuring 1.3 cm. No plaque formation isseen. IMPRESSION: The abdominal aorta is normal in caliber, without evidenceof aneurysm. Code 56729 G9551 Dictating Physician: ALFREDO VALENTE MD Electronically Signed by: ALFREDO VALENTE MD Dic Date/Time: 03/11/24 1100 Sign date/Time: 03/11/24 1103 us Maryan OWEN IMG US PROCEDURES Final Result from Last 3 Months or Most Recently Relevant to Health Maintenance Insurance [employer] MEDICARE ADVANTAGE on file Care Teams Detention Officer Relationship Specialty Start Date End Date Maryan Diallo PA [address] [place] [address] PCP - General 02/23/24
== END 2025-08-29 11:14 | disposition home or self-care (01) ==
LOC: HO.HOS 10:33
PROVIDERS: PCP Physician Assistant Medical
DX: G56.03 Carpal tunnel syndrome, bilateral upper limbs (principal); G56.23 Lesion of ulnar nerve, bilateral upper limbs
CPT/HCPCS: 99213

== ENCOUNTER 2025-10-02 13:26 | Outpatient (AMB) | payer OTHER, SELFPAY ==
[2025-10-02 13:31] VITALS: BP 150/82; PULSE 59; O2SAT 97; BMI 28.2
--- NOTE | 2025-10-02 13:31 | A.OFFVIS_ITS ---
Vital Signs 10/02/25 13:31 Height 5 ft 6 in Weight 175 lb BMI 28.2 BP 150/82 H Blood Pressure Location Rt brachial Pulse 59 Pulse Source Pulse Oximeter Pulse Oximetry (%) 97 Oxygen Delivery Method Room Air Intake Visit Reasons: Preop RT cubital/carpal tunnel release 10/12/25 AR Intake Note: Raymond is a 70 year old left hand dominant male who presents today pre- operatively for discussion of their Right Cubital & Carpal Tunnel Release scheduled for 10/12/[address] Reed. Consents signed in office today. Allergies No Known Allergies Allergy (Unverified 10/02/25 13:48) HPI HPI Preop RT cubital/carpal tunnel release 10/12/25 AR: Details: Raymond is a 70 year old left hand dominant male who presents today pre- operatively for discussion of their Right Cubital & Carpal Tunnel Release scheduled for 10/12/[address] Reed. Patient has been placed on amlodipine since previous evaluation for hypertension. Consents signed in office today. 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 Sleep apnea Sinus bradycardia Osteoarthritis Encounter for long-term (current) use of antibiotics Infection of prosthetic shoulder joint History of ETOH abuse HTN (hypertension) Deep postoperative wound infection Obesity Surgical History (Updated 08/28/25 @ 10:23 by Elvia Homl RN) Hx of bilateral cataract extraction History of surgical removal of ganglion cyst H/O colonoscopy History of bilateral knee replacement Hx of tonsillectomy Hx of appendectomy History of right shoulder replacement History of surgery Social History (Updated 07/11/25 @ 10:27 by CONY Malhotra) Are you a primary rn care transition to a significant other at home: No Do you presently have visiting nurse or other home services: Yes (cleaning services) Patient Tobacco Use Status: Former Tobacco user Review of Systems Const All systems reviewed & are unremarkable except as noted in HPI and below Physical Exam Vital Signs: Last Vital Signs Pulse 59 10/02/25 13:31 BP 150/82 H 10/02/25 13:31 Pulse Ox 97 10/02/25 13:31 Oxygen Delivery Method Room Air 10/02/25 13:31 BMI result Body Mass Index 28.2 Extrem Other: Neuro: Normal sensation of the tips of all digits of bilateral hands in the office today. No thenar or intrinsic wasting. Good APB muscle firing and good finger cross. Vascular: Capillary refill brisk. ROM: Patient can make a fist and extend all their digits. Skin: No lacerations or abrasions noted. General: No ecchymosis. No erythema or evidence of infection. Assessment & Plan Assessment & Plan (1) Bilateral carpal tunnel syndrome: Code(s): G56.03 - Carpal tunnel syndrome, bilateral upper limbs Category: Medical (2) Cubital tunnel syndrome, bilateral: Code(s): G56.23 - Lesion of ulnar nerve, bilateral upper limbs Category: Medical Plan 1. Right cubital tunnel syndrome 2. Right carpal tunnel syndrome Symptoms intermittent, daily, worse at night I educated the patient about the condition. I discussed both operative and nonoperative treatment options. The patient would like to proceed with surgery. The risks and benefits of operative treatment were discussed with the patient and the patient wishes to proceed with surgery. These risks include, but are not limited to, risk of damage to blood vessels, nerves, tendons, infection, recurrence, incomplete relief of preoperative symptoms, persistent pain, possible need for further surgery, and the risks associated with regional blocks and/or anesthesia. Plan is to take the patient to the operating room at some point in the next few weeks for the following procedures: 1. Right cubital tunnel release under general 2. Right carpal tunnel release under general All of the preoperative paperwork including the consent was discussed today. All of the patient's questions were answered in the clinic today. The patient understands that they will be in contact with our surgical garment fitter to discuss scheduling their procedure. Patient denies diabetes, blood thinners, asthma, heart issues, lung issues, kidney issues, or current smoking. 3. Left cubital tunnel syndrome 4. Left carpal tunnel syndrome Patient would like to proceed with operative intervention on the right prior to any intervention of the left Patient is educated that it needs to be 3 months between surgical procedures that are under general anesthesia Patient understands this in his amenable to this plan Coding Level of Care Code Est Pt Level 4 (66201) Diagnoses Bilateral carpal tunnel syndrome G56.03 Cubital tunnel syndrome, bilateral G56.23
--- OUTSIDE RECORDS SUMMARY | 2025-10-02 17:01 | XMS_ITS | Encounter Summary ---
Author Organization [facility] Address [address] [facility] [address] [place] [address] Phone Care Team Providers Care Dye And Chemical Coordinator Name Role Phone Aleida Langley MD Primary Care Provider Encounter Details Date Type Department Care Team (Late st Contact Info) Description 06/13/2021 Procedure Pass [facility] Cardiovascular And Interventional Radiology [address] [place] [address] Social History Tobacco Use Types Packs/Day Years [...] 2:54 PM EDT Roslyn Weller RN * [place] Suicide Severity Rating Scale (Screener/Recent Self-Report) Question [...] on filedocumented in this encounter Care Teams Dye And Chemical Coordinator Relationship Specialty Start Date End Date Aleida Langley MD [address] [place] [phone] PCP - General Internal Medicine 10/09/20 documented as of this encounter Additional Source Comments The information contained in this document represents components of the legal health record. It is not the complete legal health record.[facility]
--- OUTSIDE RECORDS SUMMARY | 2025-10-02 17:01 | XMS_ITS | Encounter Summary ---
Author Organization [facility] Address [address] [facility] [address] [place] [address] Phone Care Team Providers Care Special Investigation Unit Investigator Name Role Phone Aleida Langley MD Primary Care Provider Encounter Details Date Type Department Care Team (Late st Contact Info) Description 06/14/2021 Procedure Pass [facility] Cardiovascular And Interventional Radiology [address] [place] [address] Social History Tobacco Use Types Packs/Day Years [...] on filedocumented in this encounter Care Teams Special Investigation Unit Investigator Relationship Specialty Start Date End Date Aleida Langley MD [address] [place] [address] PCP - General Internal Medicine 10/09/20 documented as of this encounter Additional Source Comments The information contained in this document represents components of the legal health record. It is not the complete legal health record.[facility]
--- OUTSIDE RECORDS SUMMARY | 2025-10-02 17:01 | XMS_ITS | Encounter Summary ---
Author Organization [facility] Address [address] [facility] [address] [place] [address] Phone Care Team Providers Care Labor Training Manager Name Role Phone Aleida Langley MD Primary Care Provider Encounter Details Date Type Department Care Team (Late st Contact Info) Description 06/13/2021 Procedure Pass OR Admitting Dept - [facility] Department [address] [place] [address] Social History Tobacco Use Types Packs/Day Years [...] 2:54 PM EDT Roslyn Weller RN * [place] Suicide Severity Rating Scale (Screener/Recent Self-Report) Question [...] on filedocumented in this encounter Care Teams Labor Training Manager Relationship Specialty Start Date End Date Aleida Langley MD [address] [place] [phone] PCP - General Internal Medicine 10/09/20 documented as of this encounter Additional Source Comments The information contained in this document represents components of the legal health record. It is not the complete legal health record.[facility]
--- OUTSIDE RECORDS SUMMARY | 2025-10-02 17:01 | XMS_ITS | Encounter Summary ---
Author Organization [facility] Address [address] [facility] [address] [place] [address] Phone Care Team Providers Care Councilman Name Role Phone Aleida Langley MD Primary Care Provider Encounter Details Date Type Department Care Team (Late st Contact Info) Description 02/18/2021 Procedure Pass [facility] [address] [place] [address] Social History Tobacco Use Types Packs/Day Years [...] 1:14 PM EDT Sammi Villanueva CNP * [place] Suicide Severity Rating Scale (Screener/Recent Self-Report) Question Answer Date of Assessment Author 1. Wish to be (Past 1 Month) No 02/20/2021 1:14 PM EDT Sammi Villanueva CNP 2. Non-Specific Active Suicidal Thoughts (Past 1 Month) No 02/20/2021 1:14 PM EDT Sammi Villanueva CNP 6. Suicidal Behavior (Lifetime) No 02/20/2021 1:14 PM EDT Sammi Villanueva, AYLIN documented as of this encounter Plan of Treatment Not on file documented as of this encounter Visit Diagnoses Not on filedocumented in this encounter Care Teams Councilman Relationship Specialty Start Date End Date Aleida Langley MD [address] [place] [address] PCP - General Internal Medicine 10/09/20 documented as of this encounter Additional Source Comments The information contained in this document represents components of the legal health record. It is not the complete legal health record.[facility]
--- OUTSIDE RECORDS SUMMARY | 2025-10-02 17:01 | XMS_ITS | Encounter Summary ---
Author Organization [facility] Address [address] [facility] [address] [place] [address] Phone Care Team Providers Care Corporate Administrative Assistant Name Role Phone Aleida Langley MD Primary Care Provider Encounter Details Date Type Department Care Team (Late st Contact Info) Description 02/14/2021 Procedure Pass [place] Admitting Dept - [facility] Department 30 [place] [address] Social History Tobacco Use Types Packs/Day Years [...] 12:18 PM EDT Heidi Mckoy RN * [place] Suicide Severity Rating Scale (Screener/Recent Self-Report) Question Answer Date of Assessment Author 1. Wish to be (Past 1 Month) No 021 12:18 PM CHITOT Heidi Álvarez RN 2. Non-Specific Active Suici derrell Thoughts (Past 1 Month) No 02/14/2021 12:18 PM CHITOT Romi Álvarez RN 6. Suicidal Behavior (Lifetime) No 12:18 PM EDT Chisago, Heidi, RN documented as of this encounter Plan of Treatment Not on file documented as of this encounter Visit Diagnoses Not on filedocumented in this encounter Care Teams Corporate Administrative Assistant Relationship Specialty Start Date End Date Aleida Langley MD [address] [place] [address] PCP - General Internal Medicine 10/09/20 documented as of this encounter Additional Source Comments The information contained in this document represents components of the legal health record. It is not the complete legal health record.[facility]
--- OUTSIDE RECORDS SUMMARY | 2025-10-02 17:01 | XMS_ITS | Encounter Summary ---
Author Organization [facility] Address [address] [facility] [address] [place] [address] Phone Care Team Providers Care Bottoming Room Inspector Name Role Phone Aleida Langley MD Primary Care Provider Encounter Details Date Type Department Care Team (Late st Contact Info) Description 02/18/2021 Procedure Pass [facility] 30 [place] [address] Social History Tobacco Use Types Packs/Day Years [...] 1:14 PM EDT Sammi Villanueva CNP * [place] Suicide Severity Rating Scale (Screener/Recent Self-Report) Question [...] on filedocumented in this encounter Care Teams Bottoming Room Inspector Relationship Specialty Start Date End Date Aleida Langley MD [address] [place] [address] PCP - General Internal Medicine 10/09/20 documented as of this encounter Additional Source Comments The information contained in this document represents components of the legal health record. It is not the complete legal health record.[facility]
--- OUTSIDE RECORDS SUMMARY | 2025-10-02 17:01 | XMS_ITS | Encounter Summary ---
Author Organization [facility] Address [address] [place] [address] Phone Care Team Providers Care Small Parts Assembler Name Role Phone Aleida Langley MD Primary Care Provider Encounter Details Date Type Department Care Team (Late st Contact Info) Description 01/17/2021 Procedure Pass OR Admitting Dept - [facility] Department 30 [place] [address] Social History Tobacco Use Types Packs/Day Years [...] on filedocumented in this encounter Care Teams Small Parts Assembler Relationship Specialty Start Date End Date Aleida Langley MD [address] [place] [address] PCP - General Internal Medicine 10/09/20 documented as of this encounter Additional Source Comments The information contained in this document represents components of the legal health record. It is not the complete legal health record.[facility]
--- OUTSIDE RECORDS SUMMARY | 2025-10-02 17:01 | XMS_ITS | Clinical Summary ---
Author Organization [facility] Address [address] [facility] [address] [place] [address] Phone Care Team Providers Care Pump Runner Name Role Phone Aleida Langley MD Primary Care Provider Allergies No known active allergies Medications omega 2-hvw-pzs-fish oil 1,000 mg (120 mg-180 mg) Cap [...] Diagnosed Date Deep postoperative wound infection 02/14/2021 intermediate designer current use of antibiotics 02/14/2021 Overview (02/16/2021): Ceftriaxone for post-op TSA infection Infection of prosthetic shoulder joint 1 Overview (02/16/2021): Deep OR Cultures [+] for Serratia marcescens and Morganella morganii Status post total shoulder arthroplasty, right 0 01/17/2021 Overview (02/16/2021): Dr. Pham, [facility] Preop examination 12/04/2020 Assessment & Plan (12/04/2020 12:09 PM EST): This is a 65-year-old patient of Dr.Cuevas Foss at [facility] and Dr. Pham seen at the surgical optimization clinic for planned right shoulder arthroplasty on 01/17. This is a very active 65-year-old male with excellent exercise tolerance. His risk calculators show a Trejo score of 0.2% chance of cardiac issues perioperatively or in the first 30 days. His RCRI score is congruent with this at 0.4% chance of AL, CHF, or arrhythmia perioperatively. This is considered [...] study 2 to 3 months ago at [place] and he has not been restarted on [...] VACCINES (50+ years) (2 of 2 - PCV20 or PCV21) 01/19/2020 01/18/2019 INFLUENZA VACCINE (#1) 2025 9, [...] this topic Medical Devices Implanted Type Area Application Architect Device Identifier Shelf Expiration Date Model / Serial / Lot Right Shoulder NODATA Right: Shoulder Description:Unknown hardware from prior surgery Bilateral Knees Prosthetic Joint Prosthetic Joint Bilateral: Knee Shoulder Implant 30mm Md Component Glenoid Aequalis Perform Cortiloc - [id number] Implanted:Qty : 1 on 01/17/2021 by Vamsi Pham DO at [facility] STANDARD Right: Acromial Process [employer] 04/20/2022 [id number] / [id number] / Cement Bone Biomet Standard R 1x40 Us - [id number] Implanted:Qty : 1 on 01/17/2021 by Vamsi Pham DO at [facility] Right: Acromial Process MINESH / DIV OF [employer] 06/29/2025 [id number] / / [id number] Shoulder Simpliciti Size 2 Nucleus Humeral System - [id number] Implanted:Qty : 1 on 01/17/2021 by Vamsi Pham DO at [facility] Right: Acromial Process [employer] 11/16/2024 [id number] / [id number] / Shoulder [id number] Prosthesis Simpliciti - [id number] Implanted:Qty : 1 on 01/17/2021 by Vamsi Pham DO at [facility] Right: Acromial Process [employer] 03/26/2025 [id number] / [id number] / Cement Bone Biomet Standard R 1x40 Us - [id number] Implanted:Qty : 1 on 06/13/2021 by Vamsi Pham DO at [facility] Right: Shoulder MINESH / DIV OF [employer] 08/01/2025 [id number] / / [id number] Cement Bone Biomet Standard R 1x40 - [id number] Implanted:Qty : 1 on 06/13/2021 by Vamsi Pham DO at [facility] Right: Shoulder MINESH / DIV OF [employer]ST[employer] 04/01/2024 [id number] / / [id number] Insurance [employer] PPO MEDICARE REPLACEMENT [employer] PPO MEDICARE REPLACEMENT [employer] PPO MEDICARE REPLACEMENT O MEDICARE REPLACEMENT MEDICARE REPLACEMENT [address] [place] [address]O MEDICARE [facility]PLAC[facility] Advance Directives For more information, please contact: [phone] (9AM - 5PM [facility], Thursday-Thursday) Documents on File Type Date Recorded Patient Campground Attendant Expl anation Healthcare Proxy 02/20/2021 1:52 PM * Full Code (Latest Code Status on File) Date Activated Date Inactivated Comments 02/14/2021 1:12 PM Question Answer Comments Code Status Confirmed With: Patient Care Teams Pump Runner Relationship Specialty Start Date End Date Aleida Langley MD [address] [place] [address] PCP - General Internal Medicine 10/09/20 Additional Source Comments The information contained in this document represents components of the legal health record. It is not the complete legal health record.[facility]
--- OUTSIDE RECORDS SUMMARY | 2025-10-02 17:01 | XMS_ITS | Encounter Summary ---
Author Organization [facility] Address [address] [facility] [address] [place] [address] Phone Care Team Providers Care Biotechnician Name Role Phone Aleida Langley MD Primary Care Provider Encounter Details Date Type Department Care Team (Late st Contact Info) Description 02/18/2021 Procedure Pass [facility] 30 [place] [address] Social History Tobacco Use Types Packs/Day Years [...] 1:14 PM EDT Sammi Villanueva CNP * [place] Suicide Severity Rating Scale (Screener/Recent Self-Report) Question [...] on filedocumented in this encounter Care Teams Biotechnician Relationship Specialty Start Date End Date Aleida Langley MD [address] [place] [address] PCP - General Internal Medicine 10/09/20 documented as of this encounter Additional Source Comments The information contained in this document represents components of the legal health record. It is not the complete legal health record.[facility]
--- OUTSIDE RECORDS SUMMARY | 2025-10-02 17:02 | XMS_ITS | Encounter Summary ---
Author Organization [facility] Address [address] [facility] [address] [place] [address] Phone Care Team Providers Care Technical Consultant Name Role Phone Aleida Langley MD Primary Care Provider Encounter Details Date Type Department Care Team (Late st Contact Info) Description 09/03/2021 Procedure Pass [facility] 30 [place] [address] Social History Tobacco Use Types Packs/Day Years [...] on filedocumented in this encounter Care Teams Technical Consultant Relationship Specialty Start Date End Date Aleida Langley MD [address] [place] [address] PCP - General Internal Medicine 10/09/20 documented as of this encounter Additional Source Comments The information contained in this document represents components of the legal health record. It is not the complete legal health record.[facility]
--- OUTSIDE RECORDS SUMMARY | 2025-10-02 17:02 | XMS_ITS | Encounter Summary ---
Author Organization [facility] Address [address] [facility] [address] [place] [address] Phone Care Team Providers Care Structural Steel Worker Name Role Phone Aleida Langley MD Primary Care Provider Encounter Details Date Type Department Care Team (Late st Contact Info) Description 10/15/2021 Procedure Pass [facility] 30 [place] [address] Social History Tobacco Use Types Packs/Day Years [...] on filedocumented in this encounter Care Teams Structural Steel Worker Relationship Specialty Start Date End Date Aleida Langley MD [address] [place] [address] PCP - General Internal Medicine 10/09/20 documented as of this encounter Additional Source Comments The information contained in this document represents components of the legal health record. It is not the complete legal health record.[facility]
--- OUTSIDE RECORDS SUMMARY | 2025-10-02 17:02 | XMS_ITS | Clinical Summary ---
Author Organization [address] [facility] Address [address] [place] [address] Phone Care Team Providers Care Professor Of Rhetoric Name Role Phone Maryan Diallo Primary Care Provider [phone] Allergies No known active allergies Medications No known medications Encounters Date Type Department Care Team Description 09/01/2025 3:30 PM EDT Ancillary Procedure [facility] - [facility] [address] [facility] 101 [place] [phone] Bradyarrhythmia 07/21/2025 Telephone Orthopedic Surgery - [place] [address] [facility] 250 [place] [phone] Rebeca Santa MA from Last 3 Months [...] Sign Reading Time Taken Comments Blood Pressure 156/88 09/01/2025 4:23 PM EDT Pulse - - Temperature - - Respiratory Rate - - Oxygen Saturation - - Inhaled Oxygen Concentration - - Weight 79.4 kg (175 lb) 09/01/2025 4:23 PM EDT Height 167.6 cm (5' 6 ) 09/01/2025 4:23 PM EDT Body Mass Index 28.25 09/01/2025 4:23 PM EDT Plan of Treatment Health Maintenance [...] Procedure Name Priority Date/Time Associated Diagnosis Comments TRANSTHORACIC ECHOCARDIOGRAM (TTE) COMPLETE STAT 09/01/2025 4:25 PM EDT Bradyarrhythmia US ABDOMEN AORTA SCR STUDY AAA Routine 03/11/2024 11:03 AM EDT Encounter for screening for cardiovascular disorders from Last 3 Months or Most Recently Relevant to Health Maintenance Results * (ABNORMAL) TRANSTHORACIC ECHOCARDIOGRAM (TTE) COMPLETE (09/01/2025 4:25 PM EDT) Left Atrium Minor Alvo 7.2 cm CV PACS Left Atrium Major Alvo 6.5 cm CV PACS LA Area Sys (A2C) 28 cm2 CV PACS LA Area Sys (A4C) 25 cm2 CV PACS LA Volume (BP) 85 mL CV PACS RA Area 21.8 cm2 CV PACS RA 2D Volume 62 mL CV PACS AV Regurgitation PHT 646 ms CV PACS AR Max Velocity 4.6 m/s CV PACS AV Regurgitant Volume 84 mmHg CV PACS AV Peak Chet 2.5 m/s CV PACS AV Peak Gradient 25 mmHg CV PACS AV Mean Gradient 11 mmHg CV PACS Ao VTI 38.7 cm CV PACS AV Area Continuity Equation 3.4 cm2 CV PACS AV Area Peak Velocity 3.2 cm2 CV PACS Aortic Sinus Valsalva 4.2 cm CV PACS Ascending Aorta 3.9 cm CV PACS IVSD 1.5(A) 0.6 - 1.0 cm CV PACS LVIDD 5.2 4.2 - 5.8 cm CV PACS LVIDS 2.8 2.5 - 4.0 cm CV PACS LVOT Diameter 2.4 cm CV PACS LVOT Mean Chet 1.1 m/s CV PACS LVOT Mean Grad 6 mmHg CV PACS LVOT Peak VTI 29.3 cm CV PACS LVOT Peak Chet 1.8 m/s CV PACS LVOT Peak Gradient 13 mmHg CV PACS LVPWD 1.6(A) 0.6 - 1.0 cm CV PACS MV E' Tissue Velocity Lateral 9 cm/s CV PACS MV E' Tissue Velocity Septal 8 cm/s CV PACS LVOT Area 4.5 cm2 CV PACS LVOT Stroke Volume 132 mL CV PACS MV Deceleration Logan 5.9 m/s2 CV PACS E Wave Deceleration Time 161 119 - 242 ms CV PACS MV PHT 47 ms CV PACS MV Peak A Chet 0.79 m/s CV PACS MV Peak E Chet 0.96 m/s CV PACS MV Area PHT 4.7 cm2 CV PACS PV Acceleration Time 100 ms CV PACS PV Acceleration Time 100 ms CV PACS RV Diastolic Basal Dimension 4.2(A) 2.5 - 4.1 cm CV PACS RV S' 19 cm/s CV PACS TAPSE 31 mm CV PACS TR Peak Velocity 2.46 m/s CV PACS TR Peak Gradient 24 mmHg CV PACS E/E' Ratio Septal 12 CV PACS E/E' Ratio Averaged 11 CV PACS LVOT Stroke Index 70 mL/m2 CV PACS Relative Wall Thickness ratio 0.62 CV PACS LVOT:AV VTI Index 0.76 CV PACS FS 46 % CV PACS LV Mass 2D 359 g CV PACS Ascending Aorta Index 2.06 cm/m2 CV PACS LVOT flow 497 mL/s CV PACS RA 2D Volume Index 33 mL/m2 CV PACS JERMAN Index (VTI) 1.81 cm2/m2 CV PACS JERMAN Index (Pk Chet) 1.69 cm2/m2 CV PACS LVIDD Index 2.75 cm/m2 CV PACS LVIDS Index 1.48 cm/m2 CV PACS AV Velocity Ratio 0.72 CV PACS E/A Ratio 1.2 CV PACS E/E' Ratio Lateral 11 CV PACS LA Volume Index (BP) 45 mL/m2 CV PACS LV Mass Index 2D 190 g/m2 CV PACS BSA 1.92 m2 CV PACS Right Ventricular Peak Systolic Pressure 27 mmHg CV PACS Est. RA Pressure 3 mmHg CV PACS Anatomical Region Laterality Modality Ultrasound Narrative 09/04/2025 11:23 AM EST Left ventricle cavity size is normal. There is moderate hypertrophy. Systolic function is normal with an ejection fraction of 60-65%. Global longitudinal strain is normal at -19.8%. There are no regional LV wall motion abnormalities. There is Grade II (moderate) diastolic dysfunction. Right ventricle cavity is normal. Right ventricular systolic function is normal. Aortic valve sclerosis without stenosis. Mild to moderate aortic valve regurgitation. Mild tricuspid regurgitation. The right ventricular systolic pressure is normal and estimated at 27 mmHg. Left Ventricle Left ventricle cavity size is normal. There is moderate hypertrophy. Systolic function is normal with an ejection fraction of 60-65%. Global longitudinal strain is normal at -19.8%. There are no regional LV wall motion abnormalities. There is Grade II (moderate) diastolic dysfunction. Right Ventricle Right ventricle cavity appears normal. Systolic function is normal. Left Atrium Left atrium cavity is moderately dilated. Right Atrium Right atrium cavity is mildly dilated. IVC/SVC Inferior vena cava structure is normal. RA pressures is estimated to be 3 mmHg (IVC diameter <21 mm and decreases >50% during inspiration). Mitral Valve The leaflets are mildly thickened. There is annular calcification. There is trace regurgitation. There is no evidence of mitral valve stenosis. Tricuspid Valve The leaflets exhibit normal excursion. There is mild regurgitation. There is no evidence of tricuspid valve stenosis. The right ventricular systolic pressure is normal. The RVSP is estimated at 27 mmHg. Aortic Valve The aortic valve is trileaflet. There is mild sclerosis. There is mild to moderate regurgitation. There is no evidence of aortic valve stenosis. Pulmonic Valve Pulmonic valve structure is normal. There is trace pulmonic valve regurgitation. Ascending Aorta The Sinus of Valsalva is (4.2 cm). The ascending aorta is (3.9 cm). Pericardium There is no pericardial effusion. Study Details Overall the study quality was adequate. us Tobias Olson MD CV ECHO PROCEDURES Final Resu lt * US ABDOMEN AORTA SCR STUDY AAA (03/11/2024 11:03 AM EDT) Anatomical Region Laterality Modality Ultrasound 03/11/2024 9:01 AM EDT Narrative 03/11/2024 11:03 AM EDT [facility] Diagnostic Imaging Department [address] [place] [address] Patient: BETTY PATEL Curtis Chavez/Age/Sex: 1955 - 68 - M Unit#: [id number] Location/Status: SPDIUS/REG CLI Mnemonic/Ordering Site: AAASCRSTUD/SPUS Ordering Physician: MARYAN DIALLO PA-C Abdomen Aorta Scr Study AAA - 03/11/24916 [...] in caliber, without evidence of aneurysm. Code 72961 G9551 Dictating Physician: ALFREDO VALENTE MD Electronically Signed by: ALFREDO VALENTE MD Dic Date/Time: 03/11/24 1100 Sign date/Time: 03/11/24 1103 Procedure Note Alfredo Valente MD - 06/20/2024 [facility] Diagnostic Imaging Department [address] [place] [address] Patient: BETTY PATEL Curtis AvilaB./Age/Sex: 1955 - 68 - M Unit#: [id number] Location/Status: SPDIUS/REG CLI Mnemonic/Ordering Site: AAASCRSTUD/SPUS Ordering Physician: MARYAN DIALLO PA-C US Abdomen [...] normal in caliber, without evidenceof aneurysm. Code 92677 G9551 Dictating Physician: ALFREDO VALENTE MD Electronically Signed by: ALFREDO VALENTE MD Dic Date/Time: 03/11/24 1100 Sign date/Time: 03/11/24 1103 Maryan OWEN IM US PROCEDURES Final Result from Last 3 Months or Most Recently Relevant to Health Maintenance Insurance [facility] MEDICARE ADVANTAGE on file Care Teams Professor Of Rhetoric Relationship Specialty Start Date End Date Maryan Diallo PA [address] [place] [address] PCP - General 02/23/24
--- OUTSIDE RECORDS SUMMARY | 2025-10-02 17:02 | XMS_ITS | Encounter Summary ---
Author Organization [facility] Address [address] [facility] [address] [place] [address] Phone Care Team Providers Care Flight Attendant Name Role Phone Unknown, Unknown Primary Care Provider Aleida Rios MD Primary Care Provider Encounter Details Date Type Department Care Team (Late st Contact Info) Description 09/04/2020 Ancillary Orders [facility],Outside Imaging [address] [place], [place] [phone] System, Provider Not In, [facility] [address] [address] Social History Tobacco Use Types Packs/Day Years [...] on filedocumented in this encounter Care Teams Flight Attendant Relationship Specialty Start Date End Date Unknown, Unknown, PCP - General 09/03/20 10/08/20 Aleida Langley MD [address] [place], [place] [phone] PCP - General Internal Medicine 10/09/20 documented as of this encounter Additional Source Comments The information contained in this document represents components of the legal health record. It is not the complete legal health record.[facility]
--- OUTSIDE RECORDS SUMMARY | 2025-10-02 17:02 | XMS_ITS | Encounter Summary ---
Author Organization [facility] Address [address] [place] [address] Phone Care Team Providers Care Chiller Tender Name Role Phone Unknown, Unknown Primary Care Provider Aleida Rios MD Primary Care Provider Encounter Details Date Type Department Care Team (Late st Contact Info) Description 10/02/2020 Procedure Pass [facility], Ct Scan - [address] [address] Social History Tobacco Use Types Packs/Day Years [...] on filedocumented in this encounter Care Teams Chiller Tender Relationship Specialty Start Date End Date Unknown, Britney, PCP - General 09/03/20 10/08/20 Aleida Langley MD [address] [place] [address] PCP - General Internal Medicine 10/09/20 documented as of this encounter Additional Source Comments The information contained in this document represents components of the legal health record. It is not the complete legal health record.[facility]
== END 2025-10-02 14:11 | disposition home or self-care (01) ==
LOC: HO.HOS 13:27
PROVIDERS: PCP Physician Assistant Medical
DX: G56.03 Carpal tunnel syndrome, bilateral upper limbs (principal); G56.23 Lesion of ulnar nerve, bilateral upper limbs
CPT/HCPCS: 99024

== ENCOUNTER 2025-10-12 08:41 | Day surgery (SDC) | payer OTHER, SELFPAY ==
--- OUTSIDE RECORDS SUMMARY | 2025-08-22 16:06 | XMS_ITS | Encounter Summary ---
Author Organization [facility] Address [address] [place] [address] Phone Care Team Providers Care Visitor Services Technician Name Role Phone Aleida Langley MD Primary Care Provider Encounter Details Date Type Department Care Team (Late st Contact Info) Description 01/17/2021 Procedure Pass [place] Admitting Dept - [facility] Department [address] [place] [address] Social History Tobacco Use Types Packs/Day Years [...] on filedocumented in this encounter Care Teams Visitor Services Technician Relationship Specialty Start Date End Date Aleida Langley MD [address] [place] [address] PCP - General Internal Medicine 10/09/20 documented as of this encounter Additional Source Comments The information contained in this document represents components of the legal health record. It is not the complete legal health record.[facility]
--- OUTSIDE RECORDS SUMMARY | 2025-08-22 16:06 | XMS_ITS | Clinical Summary ---
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 Pham, [facility] Preop examination 12/04/2020 Assessment & Plan (12/04/2020 12:09 PM EST): This is a 65-year-old patient of Dr.Cuevas Foss at [facility] and Dr. Pham seen at the surgical optimization clinic for planned right shoulder arthroplasty on 01/17. This is a very active 65-year-old male with excellent exercise tolerance. His risk calculators show a Trejo score of 0.2% chance of cardiac issues perioperatively or in the first 30 days. His RCRI score is congruent with this at 0.4% chance of AK, CHF, or arrhythmia perioperatively. This is considered [...] study 2 to 3 months ago at [place] and he has not been restarted on [...] this topic Medical Devices Implanted Type Area Tower Operator Device Identifier Shelf Expiration Date Model / Serial / Lot Right Shoulder NODATA Right: Shoulder Description:Unknown hardware from prior surgery Bilateral Knees Prosthetic Joint Prosthetic Joint Bilateral: Knee Shoulder Implant 30mm Md Component Glenoid Aequalis Perform Cortiloc - [id number] Implanted:Qty : 1 on 01/17/2021 by Vamsi Pham DO at [facility] STANDARD Right: Acromial Process [employer] 04/20/2022 [id number] / [id number] / Cement Bone Biomet Standard R 1x40 Us - [id number] Implanted:Qty : 1 on 01/17/2021 by Vamsi Pham DO at [facility] Right: Acromial Process MINESH / DIV OF [employer] 06/29/2025 [id number] / / [id number] Shoulder Simpliciti Size 2 Nucleus Humeral System - [id number] Implanted:Qty : 1 on 01/17/2021 by Vamsi Pham DO at [facility] Right: Acromial Process [employer] 11/16/2024 [id number] / [id number] / Shoulder [id number] Prosthesis Simpliciti - [id number] Implanted:Qty : 1 on 01/17/2021 by Vamsi Pham DO at [facility] Right: Acromial Process [employer] 03/26/2025 [id number] / [id number] / Cement Bone Biomet Standard R 1x40 Us - [id number] Implanted:Qty : 1 on 06/13/2021 by Vamsi Pham DO at [facility] Right: Shoulder MINESH / DIV OF BRISTOL SQUIBB 08/01/2025 [id number] / / [id number] Cement Bone Biomet Standard R 1x40 - [id number] Implanted:Qty : 1 on 06/13/2021 by Vamsi Pham DO at [facility] Right: Shoulder MINESH / DIV OF [employer]STOL SQUIB[employer] 04/01/2024 [id number] / / [id number] Insurance HUMANA PPO MEDICARE REPLACEMENT [employer] PPO MEDICARE REPLACEMENT HU[employer] PPO MEDICARE REPLACEMENT O MEDICARE REPLACEMENT O [facility]IC[facility] RE[facility] Advance Directives For more information, please contact: [phone] (9AM - 5PM Kelly/[facility]_Early, Thursday-Thursday) Documents on File Type Date Recorded Patient Dress Draper Expl anation Healthcare Proxy 02/20/2021 1:52 PM * Full Code (Latest Code Status on File) Date Activated Date Inactivated Comments 02/14/2021 1:12 PM Question Answer Comments Code Status Confirmed With: Patient Care Teams Ophthalmic Assistant Relationship Specialty Start Date End Date Aleida Langley MD [address] [place] [id number] PCP - General Internal Medicine 10/09/20 Additional Source Comments The information contained in this document represents components of the legal health record. It is not the complete legal health record.[facility]
--- OUTSIDE RECORDS SUMMARY | 2025-08-22 16:06 | XMS_ITS | Encounter Summary ---
Author Organization [facility] Address [address] [facility] [facility] [address] [place] [address] Phone Care Team Providers Care Contract Clerk Automobile Name Role Phone Aleida Langley MD Primary Care Provider Encounter Details Date Type Department Care Team (Late st Contact Info) Description 02/18/2021 Procedure Pass [facility]ventional [facility]iology [address] [place] [address] Social History Tobacco Use Types Packs/Day Years [...] 1:14 PM EDT Sammi Villanueva CNP * [place] Suicide Severity Rating Scale (Screener/Recent Self-Report) Question [...] on filedocumented in this encounter Care Teams Contract Clerk Automobile Relationship Specialty Start Date End Date Aleida Langley MD [address] [place] [address] PCP - General Internal Medicine 10/09/20 documented as of this encounter Additional Source Comments The information contained in this document represents components of the legal health record. It is not the complete legal health record.[facility]
--- OUTSIDE RECORDS SUMMARY | 2025-08-22 16:06 | XMS_ITS | Encounter Summary ---
Author Organization [facility] Address [address] [facility] [address] [place] [address] Phone Care Team Providers Care Cleat Blanker Name Role Phone Aleida Langley MD Primary Care Provider Encounter Details Date Type Department Care Team (Late st Contact Info) Description 09/03/2021 Procedure Pass [facility] [address] [place] [address] Social History Tobacco Use Types Packs/Day Years [...] on filedocumented in this encounter Care Teams Cleat Blanker Relationship Specialty Start Date End Date Aleida Langley MD [address] [place] [address] PCP - General Internal Medicine 10/09/20 documented as of this encounter Additional Source Comments The information contained in this document represents components of the legal health record. It is not the complete legal health record.[facility]
--- OUTSIDE RECORDS SUMMARY | 2025-08-22 16:06 | XMS_ITS | Encounter Summary ---
Author Organization [facility] Address [address] [facility] [address] [place] [address] Phone Care Team Providers Care Television Cabinet Finisher Name Role Phone Aleida Langley MD Primary Care Provider Encounter Details Date Type Department Care Team (Late st Contact Info) Description 06/13/2021 Procedure Pass [place] Admitting Dept - [facility] Department [address] [place] [address] Social History Tobacco Use Types Packs/Day Years [...] 2:54 PM EDT Roslyn Weller RN * [place] Suicide Severity Rating Scale (Screener/Recent Self-Report) Question [...] on filedocumented in this encounter Care Teams Television Cabinet Finisher Relationship Specialty Start Date End Date Aleida Langley MD [address] [place] [address] PCP - General Internal Medicine 10/09/20 documented as of this encounter Additional Source Comments The information contained in this document represents components of the legal health record. It is not the complete legal health record.[facility]
--- OUTSIDE RECORDS SUMMARY | 2025-08-22 16:06 | XMS_ITS | Encounter Summary ---
Author Organization [facility] Address [address] [facility] [address] [place] [address] Phone Care Team Providers Care Senior Sales Associate Name Role Phone Aleida Langley MD Primary Care Provider Encounter Details Date Type Department Care Team (Late st Contact Info) Description 06/13/2021 Procedure Pass [facility] [address] [place] [address] Social History Tobacco Use Types Packs/Day Years [...] 2:54 PM EDT Roslyn Weller RN * [place] Suicide Severity Rating Scale (Screener/Recent Self-Report) Question [...] filedocumented in this encounter Care Teams Senior Sales Associate Relationship Specialty Start Date End Date Aleida Langley MD [address] [place] [id number] PCP - General Internal Medicine 10/09/20 documented as of this encounter Additional Source Comments The information contained in this document represents components of the legal health record. It is not the complete legal health record.[facility]
--- OUTSIDE RECORDS SUMMARY | 2025-08-22 16:06 | XMS_ITS | Encounter Summary ---
Author Organization [facility] Address [address] [facility] [address] [place] [address] Phone Care Team Providers Care Ward Secretary Name Role Phone Aleida Langley MD Primary Care Provider Encounter Details Date Type Department Care Team (Late st Contact Info) Description 10/15/2021 Procedure Pass [facility] 30 [place] [address] Social History Tobacco Use Types Packs/Day Years [...] on filedocumented in this encounter Care Teams Ward Secretary Relationship Specialty Start Date End Date Aleida Langley MD [address] [place] [address] PCP - General Internal Medicine 10/09/20 documented as of this encounter Additional Source Comments The information contained in this document represents components of the legal health record. It is not the complete legal health record.[facility]
--- OUTSIDE RECORDS SUMMARY | 2025-08-22 16:06 | XMS_ITS | Encounter Summary ---
Author Organization [facility] Address [address] [facility] [address] [place] [address] Phone Care Team Providers Care Resident Physician In Radiology Name Role Phone Unknown, Unknown Primary Care Provider Aleida Rios MD Primary Care Provider Encounter Details Date Type Department Care Team (Late st Contact Info) Description 09/04/2020 Ancillary Orders [facility],Outside Imaging 30 [place], [place] [phone] System, Provider Not In, [facility] [address] [address] Social History Tobacco Use Types Packs/Day Years [...] on filedocumented in this encounter Care Teams Resident Physician In Radiology Relationship Specialty Start Date End Date Unknown, Unknown, PCP - General 09/03/20 10/08/20 Aleida Langley MD [address] [place], [place] [phone] PCP - General Internal Medicine 10/09/20 documented as of this encounter Additional Source Comments The information contained in this document represents components of the legal health record. It is not the complete legal health record.[facility]
--- OUTSIDE RECORDS SUMMARY | 2025-08-22 16:06 | XMS_ITS | Patient Health Record ---
Author Organization [facility] Address [address] [place] [address] Care Team Providers Care Toe Closing Machine Tender Name Role Phone Kareem INMAN, Nisha Primary Care Provider Dino Guevara [phone] Reason For Referral No Information Medications Medication SIG (Take, Route, Frequency, Duration) Notes Start Date End Date Status Diclofenac Sodium Ac tive MoviPrep 100 GM as directed Orally a s directed; Duration: 1 dose 12/23/2014 Activ e Lisinopril-hydroCHLOROthia zide Active Problems Problem Type SNOMED Code ICD Code Onset Dates Problem Status W/U Status Risk Notes 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-steroidal anti-inflammat ory drug (situation) (8942044363729 03) Long-term (current) use of nonsteroidal anti-inflammatori es (NSAID) (V58.64) Active confirmed Problem Colon cancer screening (858669883) Colon cancer screening (V76.51) Active confirmed Problem History of polyp of colon (052990550) H/O adenomatous polyp of colon (V12.72) Active confirmed Plan Of Treatment Future Test Test Name Order Date COLONOSCOPY 11/10/2014 Insurance Providers Payer Name Payer Address Payer Phone Subscriber Number Group Number Insured Name Patient Relationship to Insured Coverage Start Date Coverage End Date [facility] [address] [place] [phone] [id number] BETTY CORREIA Self - patient is the insured Medical (General) History Medical History History ICD Code Screening colonoscopy in 200 2 revealed a 2 cm tubular adenoma removed from the sigmoid colon. He had a negative colonoscopy in 2004 and 2008, other than some diverticulosis and internal hemorrhoids Diverticulosis Thalassemia Denies AL,DM,CVA,Lung disease,renal dise ase HTN Surgical History Surgery Date(Month/Year) Appendectomy Tonsillectomy Left knee arthroscopy He'll be having knee replacements in the 2014
--- OUTSIDE RECORDS SUMMARY | 2025-08-22 16:06 | XMS_ITS | Encounter Summary ---
Author Organization [facility] Address [address] [facility] [address] [place] [address] Phone Care Team Providers Care Technologist Infectious Disease Name Role Phone Aleida Langley MD Primary Care Provider Encounter Details Date Type Department Care Team (Late st Contact Info) Description 02/14/2021 Procedure Pass OR Admitting Dept - [facility] Department [address] [place] [address] Social History Tobacco Use Types Packs/Day Years [...] 12:18 PM EDT Heidi Mckoy RN * [place] Suicide Severity Rating Scale (Screener/Recent Self-Report) Question Answer Date of Assessment Author 1. Wish to be (Past 1 Month) No 021 12:18 PM CHITOT Heidi Álvarez RN 2. Non-Specific Active Suici derrell Thoughts (Past 1 Month) No 02/14/2021 12:18 PM CHITOT Romi Álvarez RN 6. Suicidal Behavior (Lifetime) No 12:18 PM EDT [place], Heidi, RN documented as of this encounter Plan of Treatment Not on file documented as of this encounter Visit Diagnoses Not on filedocumented in this encounter Care Teams Technologist Infectious Disease Relationship Specialty Start Date End Date Aleida Langley MD [address] [place] [address] PCP - General Internal Medicine 10/09/20 documented as of this encounter Additional Source Comments The information contained in this document represents components of the legal health record. It is not the complete legal health record.[facility]
--- OUTSIDE RECORDS SUMMARY | 2025-08-22 16:06 | XMS_ITS | Encounter Summary ---
Author Organization [facility] Address [address] [facility] [address] [place] [address] Phone Care Team Providers Care Head Inspector And Center Marker Name Role Phone Aleida Langley MD Primary Care Provider Encounter Details Date Type Department Care Team (Late st Contact Info) Description 02/18/2021 Procedure Pass [facility] [address] [place] [address] Social History Tobacco Use Types Packs/Day Years [...] 1:14 PM EDT Sammi Villanueva CNP * [employer] Suicide Severity Rating Scale (Screener/Recent Self-Report) Question [...] on filedocumented in this encounter Care Teams Head Inspector And Center Marker Relationship Specialty Start Date End Date Aleida Langley MD [address] [place] [address] PCP - General Internal Medicine 10/09/20 documented as of this encounter Additional Source Comments The information contained in this document represents components of the legal health record. It is not the complete legal health record.[facility]
--- OUTSIDE RECORDS SUMMARY | 2025-08-22 16:06 | XMS_ITS | Encounter Summary ---
Author Organization [facility] Address [address] [facility] [address] [place] [address] Phone Care Team Providers Care Manager Wealth Management Name Role Phone Aleida Langley MD Primary Care Provider Encounter Details Date Type Department Care Team (Late st Contact Info) Description 02/18/2021 Procedure Pass [facility] 30 [place] [address] Social History Tobacco Use Types Packs/Day Years [...] 1:14 PM EDT Sammi Villanueva CNP * [place] Suicide Severity Rating Scale (Screener/Recent Self-Report) Question [...] on filedocumented in this encounter Care Teams Manager Wealth Management Relationship Specialty Start Date End Date Aleida Langley MD [address] [place] [address] PCP - General Internal Medicine 10/09/20 documented as of this encounter Additional Source Comments The information contained in this document represents components of the legal health record. It is not the complete legal health record.[facility]
--- OUTSIDE RECORDS SUMMARY | 2025-08-22 16:06 | XMS_ITS | Encounter Summary ---
Author Organization [facility] Address [address] [place] [address] Phone Care Team Providers Care Automotive Service Writer Name Role Phone Unknown, Unknown Primary Care Provider Aleida Rios MD Primary Care Provider Encounter Details Date Type Department Care Team (Late st Contact Info) Description 10/02/2020 Procedure Pass [facility], Ct Scan - [address] [address] Social History Tobacco Use Types Packs/Day Years [...] on filedocumented in this encounter Care Teams Automotive Service Writer Relationship Specialty Start Date End Date Unknown, Britney, PCP - General 09/03/20 10/08/20 Aleida Langley MD [address] [place] [address] PCP - General Internal Medicine 10/09/20 documented as of this encounter Additional Source Comments The information contained in this document represents components of the legal health record. It is not the complete legal health record.[facility]
--- OUTSIDE RECORDS SUMMARY | 2025-08-22 16:06 | XMS_ITS | Encounter Summary ---
Author Organization [facility] Address [address] [facility] [address] [place] [address] Phone Care Team Providers Care Day Camp Unit Leader Name Role Phone Aleida Langley MD Primary Care Provider Encounter Details Date Type Department Care Team (Late st Contact Info) Description 06/14/2021 Procedure Pass [facility] 30 [place] [address] Social History Tobacco Use Types Packs/Day Years [...] on filedocumented in this encounter Care Teams Day Camp Unit Leader Relationship Specialty Start Date End Date Aleida Langley MD [address] [place] [address] PCP - General Internal Medicine 10/09/20 documented as of this encounter Additional Source Comments The information contained in this document represents components of the legal health record. It is not the complete legal health record.[facility]
[2025-08-28 10:26] VITALS: BP 156/72; PULSE 50; RESP 17; O2SAT 96; BMI 30.2
--- NOTE | 2025-08-28 10:45 | P.CONAN_ITS ---
HPI - Anesthesia Eval Consult details Narrative: Awaiting cardiac input post ECHO 69yo M for Right Cubital Tunnel Release, Carpal Tunnel Release - 09/07/25 No recent illness No CP/SOB with pedal dirt biking daily 60 mins and swimming Current cardiac w/u - scientific advisor rec'd surgery under local anesthesia. Martin potter further comment after ECHO test results availalbe. 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 Sleep apnea Sinus bradycardia Osteoarthritis Encounter for long-term (current) use of antibiotics Infection of prosthetic shoulder joint History of ETOH abuse HTN (hypertension) Deep postoperative wound infection Obesity Surgical History Surgical History (Updated 08/28/25 @ 10:23 by Elvia Holm RN) Hx of bilateral cataract extraction History of surgical removal of ganglion cyst H/O colonoscopy History of bilateral knee replacement Hx of tonsillectomy Hx of appendectomy History of right shoulder replacement History of surgery Social History Social History (Updated 07/11/25 @ 10:27 by CONY Malhotra) Are you a primary rn patient care to a significant other at home: No Do you presently have visiting nurse or other home services: Yes (cleaning services) Patient Tobacco Use Status: Former Tobacco user Use of substances other than those prescribed or required for medical reasons: Yes Substance Use Frequency: Daily Have you been hit, kicked, punched, or otherwise hurt by someone within the past year? If so, by whom?: No Are you DNR?: No Advance Directives: No Advance Directives Information Provided: No Advance Directives on File: No Meds Allergies Allergy/AdvReac Type Severity Reaction Status Date / Time No Known Allergies Allergy Unverified 08/29/25 10:53 Home Medications ?Medication ?Instructions ?Recorded ?Confirmed ?Last Taken ?Type ascorbic acid (vitamin C) 500 mg 500 mg PO DAILY 08/2508/25/25 Unknown History tablet calcium carbonate 500 mg PO DAILY 08/25/25 Unknown History vitamin B complex 1 cap PO DAILY 08/25/2508/03 Unknown History Exam Height,Weight and Vital Signs: Height 5 ft 6 in Weight 84.822 kg Last Vital Signs Pulse 50 08/28/25 10:26 Resp 17 08/28/25 10:26 BP 156/72 H 08/28/25 10:26 Pulse Ox 96 08/28/25 10:26 O2 Del Method Room Air 08/28/25 10:26 Pertinent Lab Results Pertinent Lab Results: Lab Results Component Value Date ? BUN 16 12/30/2024 ? CREATININE 0.78 12/30/2024 ? EGFR 95 12/30/2024 ? BUNCREAT SEE NOTE: 12/30/2024 ? NA 139 12/30/2024 ? K 4.4 12/30/2024 ? CHLORIDE 105 12/30/2024 ? CO2 30 12/30/2024 ? CALCIUM 9.5 12/30/2024 ? PROTEIN 6.6 12/30/2024 ? ALBUMIN 4.5 12/30/2024 ? GLOBULIN 2.1 12/30/2024 ? BILIRUBIN 0.6 12/30/2024 ? ALKPHOS 68 12/30/2024 ? ? Lab Results Component Value Date ? WBC 5.5 12/30/2024 ? RBC 5.71 12/30/2024 ? HGB 14.0 12/30/2024 ? HCT 43.1 12/30/2024 ? MCV 75.5 (L) 12/30/2024 ? MCH 24.5 (L) 12/30/2024 ? MCHC 32.5 12/30/2024 ? RDW 16.4 (H) 12/30/2024 ? PLATELETS 201 12/30/2024 Narrative Narrative: EKG 08/2025 (08/16/2025): SB at 47 bpm with RBBB and first degree AV block (WI - 256ms), right superior axis deviation. ECHO 08/2025 ? Left ventricle cavity size is normal. There is moderate hypertrophy. Systolic function is normal with an ejection fraction of 60-65%. Global longitudinal str ain is normal at -19.8%. There are no regional LV wall motion abnormalities. There is Grade II (moderate) diastolic dysfunction. ? Right ventricle cavity is normal. Right ventricular systolic function is normal. ? Aortic valve sclerosis without stenosis. Mild to moderate aortic valve regurgitation. ? Mild tricuspid regurgitation. ? The right ventricular systolic pressure is normal and estimated at 27 mmHg. Airway Mallampati Class: III TM Dist: >3cm Neck ROM: Full Denture: Lower Partial: Upper Loose/Missing/Broken Teeth: Yes (1 x left upper crown broken) Heart: joselyn, faint murmur Lungs: CTAB Assessment and Plan Assessment Anesthesia Assessment: Anesthesia Plan Discussed and PAT Visit
--- NOTE | 2025-10-09 14:01 | HO.ANESPROP2 ---
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 (current) use of opiate analgesic Sleep apnea Sinus bradycardia Osteoarthritis Encounter for long-term (current) use of antibiotics Infection of prosthetic shoulder joint History of ETOH abuse HTN (hypertension) Deep postoperative wound infection Obesity Surgical History Surgical History (Updated 08/28/25 @ 10:23 by Elvia Holm RN) Hx of bilateral cataract extraction History of surgical removal of ganglion cyst H/O colonoscopy History of bilateral knee replacement Hx of tonsillectomy Hx of appendectomy History of right shoulder replacement History of surgery Social History Social History (Updated 07/11/25 @ 10:27 by CONY Malhotra) Are you a primary hiv/aids care nurse to a significant other at home: No Do you presently have visiting nurse or other home services: Yes (cleaning services) Patient Tobacco Use Status: Former Tobacco user Use of substances other than those prescribed or required for medical reasons: Yes Substance Use Frequency: Daily Have you been hit, kicked, punched, or otherwise hurt by someone within the past year? If so, by whom?: No Are you DNR?: No Advance Directives: No Advance Directives Information Provided: No Advance Directives on File: No Meds Allergies Allergy/AdvReac Type Severity Reaction Status Date / Time No Known Allergies Allergy Unverified 10/02/25 13:48 Home Medications ?Medication ?Instructions ?Recorded ?Confirmed ?Last Taken ?Type ascorbic acid (vitamin C) 500 mg 500 mg PO DAILY 08/25/25 08/25/25 Unknown History tablet calcium carbonate 500 mg PO DAILY 08/25/25 08/25/25 Unknown History vitamin B complex 1 cap PO DAILY 08/25/25 08/25/25 Unknown History amlodipine 5 mg tablet 5 mg PO DAILY 10/02/25 Unknown History Exam Height,Weight and Vital Signs: Height 5 ft 6 in Weight 84.822 kg Last Vital Signs Pulse 50 08/28/25 10:26 Resp 17 08/28/25 10:26 BP 156/72 H 08/28/25 10:26 Pulse Ox 96 08/28/25 10:26 O2 Del Method Room Air 08/28/25 10:26
[2025-10-12] VITALS (10 sets, daily range): BP systolic 113–152; BP diastolic 52–71; PULSE 42–51; RESP 16–17; TEMP 36.1–36.3; O2SAT 95–99
--- NOTE | 2025-10-12 10:18 | MHC.SHP ---
Pre-Procedural Eval Section A - 24 Hr Update-Section A only Date of Service: 10/12/25 Section B - Complete if H&P > 30 days Chief Complaint: Lesion of ulnar nerve, right upper limb,carpal shahla Allergies: Allergies Allergy/AdvReac Type Severity Reaction Status Date / Time No Known Allergies Allergy Unverified 10/02/25 13:48 Plan I have reviewed the history and physical and performed a pertinent physical examination on my patient. No changes have occurred unless specified. Time Spent With Patient Time: Total time managing care of this patient today ____ minutes.
--- NOTE | 2025-10-12 10:36 | PC.NURSE ---
patient HR 35-45. Dr. Solorzano anesthesiologist notified.
[2025-10-12] MEDS: Lactated Ringers 1,000 ML 100 ML IVCONT (10:51)
--- NOTE | 2025-10-12 10:52 | HO.ANESPROP2 ---
Documented by User: Camryn Ames NP 10/10/25 13:35 HPI - Anesthesia Eval Consult details Narrative: 70yo M for Right Cubital Tunnel Release, Carpal Tunnel Release No recent illness No CP/SOB with pedal dirt biking daily 60 mins and swimming Follows [facility]. Current cardiac w/u for 1 x syncopal episode. Echo WNL and good activity tolerance. Holter pending. 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, acute retirement (current) use of opiate analgesic Sleep apnea Sinus bradycardia Osteoarthritis Encounter for long-term (current) use of antibiotics Infection of prosthetic shoulder joint History of ETOH abuse HTN (hypertension) Deep postoperative wound infection Obesity Surgical History Surgical History (Updated 08/28/25 @ 10:23 by Elvia Holm RN) Hx of bilateral cataract extraction History of surgical removal of ganglion cyst H/O colonoscopy History of bilateral knee replacement Hx of tonsillectomy Hx of appendectomy History of right shoulder replacement History of surgery Social History Social History (Updated 07/11/25 @ 10:27 by CONY Malhotra) Are you a primary childcare provider to a significant other at home: No Do you presently have visiting nurse or other home services: Yes (cleaning services) Patient Tobacco Use Status: Former Tobacco user Use of substances other than those prescribed or required for medical reasons: Yes Substance Use Frequency: Daily Have you been hit, kicked, punched, or otherwise hurt by someone within the past year? If so, by whom?: No Are you DNR?: No Advance Directives: No Advance Directives Information Provided: Yes Advance Directives on File: No Meds Allergies Allergy/AdvReac Type Severity Reaction Status Date / Time No Known Allergies Allergy Unverified 10/02/25 13:48 Home Medications ?Medication ?Instructions ?Recorded ?Confirmed ?Last Taken ?Type ascorbic acid (vitamin C) 500 mg 500 mg PO DAILY 08/25/25 08/25/25 Unknown History tablet calcium carbonate 500 mg PO DAILY 08/25/25 08/25/25 Unknown History vitamin B complex 1 cap PO DAILY 08/25/25 08/25/25 Unknown History amlodipine 5 mg tablet 5 mg PO DAILY 10/02/25 Unknown History Exam Height,Weight and Vital Signs: Height 5 ft 6 in Weight 84.822 kg Last Vital Signs Pulse 50 08/28/25 10:26 Resp 17 08/28/25 10:26 BP 156/72 H 08/28/25 10:26 Pulse Ox 96 08/28/25 10:26 O2 Del Method Room Air 08/28/25 10:26 Pertinent Lab Results Pertinent Lab Results: Lab Results Component Value Date ? BUN 16 12/30/2024 ? CREATININE 0.78 12/30/2024 ? EGFR 95 12/30/2024 ? BUNCREAT SEE NOTE: 12/30/2024 ? NA 139 12/30/2024 ? K 4.4 12/30/2024 ? CHLORIDE 105 12/30/2024 ? CO2 30 12/30/2024 ? CALCIUM 9.5 12/30/2024 ? PROTEIN 6.6 12/30/2024 ? ALBUMIN 4.5 12/30/2024 ? GLOBULIN 2.1 12/30/2024 ? BILIRUBIN 0.6 12/30/2024 ? ALKPHOS 68 12/30/2024 ? ? Lab Results Component Value Date ? WBC 5.5 12/30/2024 ? RBC 5.71 12/30/2024 ? HGB 14.0 12/30/2024 ? HCT 43.1 12/30/2024 ? MCV 75.5 (L) 12/30/2024 ? MCH 24.5 (L) 12/30/2024 ? MCHC 32.5 12/30/2024 ? RDW 16.4 (H) 12/30/2024 ? PLATELETS 201 12/30/2024 Narrative Narrative: EKG 08/2025 (08/16/2025): SB at 47 bpm with RBBB and first degree AV block (VT - 256ms), right superior axis deviation. ECHO 08/2025 ? Left ventricle cavity size is normal. There is moderate hypertrophy. Systolic function is normal with an ejection fraction of 60-65%. Global longitudinal strain is normal at -19.8%. There are no regional LV wall motion abnormalities. There is Grade II (moderate) diastolic dysfunction. ? Right ventricle cavity is normal. Right ventricular systolic function is normal. ? Aortic valve sclerosis without stenosis. Mild to moderate aortic valve regurgitation. ? Mild tricuspid regurgitation. ? The right ventricular systolic pressure is normal and estimated at 27 mmHg. 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 Sleep apnea Sinus bradycardia Osteoarthritis Encounter for long-term (current) use of antibiotics Infection of prosthetic shoulder joint History of ETOH abuse HTN (hypertension) Deep postoperative wound infection Obesity Family History Family history of problems with anesthesia: No Surgical History Surgical History (Updated 08/28/25 @ 10:23 by Elvia Holm RN) Hx of bilateral cataract extraction History of surgical removal of ganglion cyst H/O colonoscopy History of bilateral knee replacement Hx of tonsillectomy Hx of appendectomy History of right shoulder replacement History of surgery History of Problems with Anesthesia: No Social History Social History (Updated 07/11/25 @ 10:27 by CONY Malhotra) Are you a primary childcare provider to a significant other at home: No Do you presently have visiting nurse or other home services: Yes (cleaning services) Patient Tobacco Use Status: Former Tobacco user Use of substances other than those prescribed or required for medical reasons: Yes Substance Use Frequency: Daily Have you been hit, kicked, punched, or otherwise hurt by someone within the past year? If so, by whom?: No Are you DNR?: No Advance Directives: No Advance Directives Information Provided: Yes Advance Directives on File: No Meds Allergies Allergy/AdvReac Type Severity Reaction Status Date / Time No Known Allergies Allergy Unverified 10/02/25 13:48 Home Medications ?Medication ?Instructions ?Recorded ?Confirmed ?Last Taken ?Type ascorbic acid (vitamin C) 500 mg 500 mg PO DAILY 08/25/25 08/25/25 Unknown History tablet calcium carbonate 500 mg PO DAILY 08/25/25 08/25/25 Unknown History vitamin B complex 1 cap PO DAILY 08/25/25 08/25/25 Unknown History amlodipine 5 mg tablet 5 mg PO DAILY 10/02/25 Unknown History Exam Exam Date and Time: 10/12/25 1050 Airway Mallampati Class: III TM Dist: >3cm Neck ROM: Full Denture: Lower Partial: Upper Loose/Missing/Broken Teeth: Yes (1 x left upper crown broken) Heart: S1S2 Assessment and Plan Assessment Anesthesia Assessment: Anesthesia Plan Discussed and Chart Reviewed Final Anesthetic Review Family History of Problems with Anesthesia: No History of Problems with Anesthesia: No NPO: Yes ASA Class: II Final Preanesthetic Review: No Changes in Pt Med Stat, Meds/Allgs Chart Reviewed, Consent Obtained/Reviewed and Anes Risks/Benef Reviewed Patient Risk: Low Procedure Risk: Low Anesthetic Plan Anesthetic Plan: GA and Agree w/ Assess. and Plan Disposition: Standard PACU
--- NOTE | 2025-10-12 11:12 | P.OP_ITS ---
Operative Note Operative Note Date of Service: 10/12/25 Narrative: Operative Note Narrative: Preop diagnosis: 1. Right Cubital tunnel syndrome 2. Right carpal tunnel syndrome Postop diagnosis: Same Procedure: 1. Right Cubital Tunnel Release 2. Right carpal tunnel release Surgeon: Alley Reed MD Supervisor Dried Yeast: Fran OWEN Anesthesia: General Anesthesia Findings: Thickening and fibrosis about the ulnar nerve at the cubital tunnel Implants: none Tourniquet time: minutes EBL: 5.0 ml Specimen: none Drains: None Complications: None Disposition: Brought to the recovery room in stable condition Plan: Follow-up in 10-14 days for wound check, and suture removal Indications: The patient is 70 years old with right cubital tunnel and right carpal tunnel syndrome . The risks and benefits of operative treatment, including but not limited to risk of damage to blood vessels, nerves, tendons, infection, recurrence, persistent pain or numbness, incomplete resolution of preoperative symptoms, or need for further surgery were discussed with the patient and they wished to proceed with surgery. Procedure: Once consent was obtained patient was brought back to the operating suite and placed in the operating table in a supine position. Perioperative antibiotics and anesthesia was administered by the anesthesia team. The limb was prepped and draped in a standard surgical fashion, and a sterile tourniquet applied to the proximal aspect of the right upper extremity. The limb was elevated exsanguinated with Esmarch bandage and the tourniquet inflated to 250 mm of mercury for a total tourniquet time of 32 minutes. Once assured that we had a good block, a 2.0 cm longitudinal incision was made centered over the right carpal tunnel. The incision was made through the skin to the subcutaneous tissues using a #15 blade. Dissection was made down to the level of the transverse carpal ligament with care being taken to protect the palmar cutaneous nerve. Once the transverse carpal ligament was clearly visualized, a longitudinal incision was made in the transverse carpal ligament 1st using a #15 blade, then using tenotomy scissors under direct visualization. Care was taken to look for and protect the motor branch of the median nerve when seen in this area. Once satisfied with our carpal tunnel release the wound was irrigated with normal saline. A 6 cm gently curved but longitudinally oriented incision was made centered over the cubital tunnel of the right upper extremity. Incision was made through the skin to the subcutaneous tissues using a # 15 Blade. I then dissected down to the level of the medial epicondyle and the cubital tunnel using tenotomy scissors. Care was taken to protect the medial antebrachial cutaneous nerve. The ulnar nerve was identified just posterior to the medial intermuscular septum. The ulnar nerve was released in a proximal to distal direction using tenotomy in iris scissors while directly visualizing and protecting the ulnar nerve. Thickening and fibrosis was appreciated about the ulnar nerve as it passed through the cubital tunnel. The ulnar nerve was assessed as I passed the elbow through full flexion and extension and was found to remain stable within its groove. At this point the tourniquet was deflated and hemostasis obtained with a brief period of local pressure and bipolar electrocautery. The wounds were copiously irrigated with normal saline. The subcutaneous layer was closed with 4-0 Vicryl suture, and the skin edges were reapproximated with 5-0 nylon suture. The wound was infiltrated with some 0.25% plain Marcaine for postop pain control and sterile dressings were applied. The patient appears to have tolerated the procedure well and with no complications. All digits were well vascularized at the conclusion of the case.
== END 2025-10-12 15:50 | disposition home or self-care (01) ==
PROVIDERS: PCP Physician Assistant Medical; Visit Provider Orthopaedic Surgery
PROC: (CPT 64718; principal; 2025-10-12 12:30)
PROC: (CPT 64721; 2025-10-12 12:30)
DX: G56.01 Carpal tunnel syndrome, right upper limb (principal); G56.21 Lesion of ulnar nerve, right upper limb; I10 Essential (primary) hypertension; I45.10 Unspecified right bundle-branch block; G47.33 Obstructive sleep apnea (adult) (pediatric); M17.10 Unilateral primary osteoarthritis, unspecified knee; E66.811 Obesity, class 1; Z68.33 Body mass index [BMI] 33.0-33.9, adult; Z86.14 Personal history of Methicillin resistant Staphylococcus aureus infection; Z79.899 Other long term (current) drug therapy; Z79.891 Long term (current) use of opiate analgesic; Z99.89 Dependence on other enabling machines and devices; Z96.653 Presence of artificial knee joint, bilateral; Z96.611 Presence of right artificial shoulder joint; F10.11 Alcohol abuse, in remission; Z87.891 Personal history of nicotine dependence
CPT/HCPCS: 64721; 64718; J0131; J0690; J1100; J1885; J2003; J2004; J2405; J2704; J2795; J3010

== ENCOUNTER → 2025-10-12 08:41 | Outpatient (BNV) | payer OTHER, SELFPAY | PROVIDERS: PCP Physician Assistant Medical; Visit Provider Orthopaedic Surgery | DX: G56.21 Lesion of ulnar nerve, right upper limb (principal); G56.01 Carpal tunnel syndrome, right upper limb | CPT/HCPCS: 64718; 64721 ==

== ENCOUNTER 2025-10-25 12:02 | Outpatient (AMB) | payer OTHER, SELFPAY ==
--- NOTE | 2025-10-25 12:03 | A.OFFVIS_ITS ---
Vital Signs 10/25/25 12:04 Height 5 ft 6 in Weight 187 lb BMI 30.2 Intake Visit Reasons: PO RT cubital/carpal tunnel release 10/12/25 AR Intake Note: Raymond is a 70 year old left hand dominant male who presents today for a Post- Operative Visit status post Right Cubital & Carpal Tunnel Release, DOS: 10/12/[address] Reed. Patient reports he is doing well. Denies numbness, tingling, finger locking. Patient is not taking any pain medications at this time. Sutures removed and Steri-strips applied. Allergies No Known Allergies Allergy (Unverified 10/25/25 12:04) HPI HPI PO RT cubital/carpal tunnel release 10/12/25 AR: Details: Raymond is a 70 year old left hand dominant male who presents today for a Post- Operative Visit status post Right Cubital & Carpal Tunnel Release, DOS: 10/12/[address] Reed. Patient reports he is doing well. Denies numbness, tingling, finger locking. Patient is not taking any pain medications at this time. Patient states he is very pleased with his overall course so far, and would like to discuss booking left-sided surgery as soon as possible. Sutures removed and Steri-strips applied. 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 Sleep apnea Sinus bradycardia Osteoarthritis Encounter for long-term (current) use of antibiotics Infection of prosthetic shoulder joint History of ETOH abuse HTN (hypertension) Deep postoperative wound infection Obesity Surgical History (Updated 08/28/25 @ 10:23 by Elvia Holm RN) Hx of bilateral cataract extraction History of surgical removal of ganglion cyst H/O colonoscopy History of bilateral knee replacement Hx of tonsillectomy Hx of appendectomy History of right shoulder replacement History of surgery Social History (Updated 07/11/25 @ 10:27 by CONY Malhotra) Are you a primary director of healthcare systems to a significant other at home: No Do you presently have visiting nurse or other home services: Yes (cleaning services) Patient Tobacco Use Status: Former Tobacco user Physical Exam Vital Signs: BMI result Body Mass Index 30.2 Extrem Other: Patient is alert, oriented, and in no acute distress. Neuro: Normal sensation of the tips of all digits of the right hand at this time Vascular: Cap refill brisk Pain: No tenderness to palpation about the incision sites on volar right wrist or medial right elbow No pain with range of motion of the right hand or elbow ROM: Patient is able to make a closed fist and extend all digits of the right hand fully Patient is able to flex the right elbow to approximately 100 degrees and extend fully and without difficulty No evidence of nerve snapping Skin: No lacerations or abrasions. General: No ecchymosis, erythema, or evidence of infection. Psych: Appears grossly normal Affect normal Attitude cooperative Assessment & Plan Assessment & Plan (1) Bilateral carpal tunnel syndrome: Code(s): G56.03 - Carpal tunnel syndrome, bilateral upper limbs Category: Medical (2) Cubital tunnel syndrome, bilateral: Code(s): G56.23 - Lesion of ulnar nerve, bilateral upper limbs Category: Medical Plan 1. Status post right cubital and carpal tunnel releases DOS 10/12/2025 With good symptomatic resolution postoperatively Patient appears to be recovering well postoperatively Patient is educated about the typical recovery course No under water times one-week, 2 lb weight limit x2 weeks Patient appears to be recovering very well, and requires no further acute follow-up with us postoperatively Patient is educated and worrisome signs and symptoms, and should call us if they experience any of these, including but not limited to redness, swelling, increased pain, and discharge Patient understands this and is amenable to this plan Follow-up to discuss left carpal and cubital tunnel releases in approximately 4- 6 weeks, sooner with any acute concerns Orders: Orders OT Evaluation and Treatment Today G56.03 - Carpal tunnel syndrome, bilateral upper limbs, G56.23 - Lesion of ulnar nerve, bilateral upper limbs Coding Level of Care Code Global (75642) Diagnoses Bilateral carpal tunnel syndrome G56.03 Cubital tunnel syndrome, bilateral G56.23
[2025-10-25 12:04] VITALS: BMI 30.2
--- OUTSIDE RECORDS SUMMARY | 2025-10-25 12:06 | XMS_ITS | Encounter Summary ---
Author Organization [facility] Address [address] [place] [phone] Phone Care Team Providers Care Finished Cloth Examiner Name Role Phone Aleida Langley MD Primary Care Provider Encounter Details Date Type Department Care Team (Late st Contact Info) Description 02/14/2021 Procedure Pass OR Admitting Dept - [facility] Department [address] [place] [address] Social History Tobacco Use Types Packs/Day Years [...] on filedocumented in this encounter Care Teams Finished Cloth Examiner Relationship Specialty Start Date End Date Aleida Langley MD [address] [place] [address] PCP - General Internal Medicine 10/09/20 documented as of this encounter Additional Source Comments The information contained in this document represents components of the legal health record. It is not the complete legal health record.[facility]
--- OUTSIDE RECORDS SUMMARY | 2025-10-25 12:06 | XMS_ITS | Encounter Summary ---
Author Organization [facility] Address [address] [place] [phone] Phone Care Team Providers Care President Of [place] Name Role Phone Aleida Langley MD Primary Care Provider Encounter Details Date Type Department Care Team (Late st Contact Info) Description 02/18/2021 Procedure Pass [facility] [address] [place] [address] Social History Tobacco Use Types Packs/Day Years [...] on filedocumented in this encounter Care Teams President Of [place] Relationship Specialty Start Date End Date Aleida Langley MD [address] [place] [address] PCP - General Internal Medicine 10/09/20 documented as of this encounter Additional Source Comments The information contained in this document represents components of the legal health record. It is not the complete legal health record.[facility]
--- OUTSIDE RECORDS SUMMARY | 2025-10-25 12:06 | XMS_ITS | Encounter Summary ---
Author Organization [facility] Address [address] [place] [phone] Phone Care Team Providers Care Kit Planner Name Role Phone Aleida Langley MD Primary Care Provider Encounter Details Date Type Department Care Team (Late st Contact Info) Description 06/13/2021 Procedure Pass [facility] [place] [facility] [address] [place] [address] Social History Tobacco Use Types Packs/Day Years [...] on filedocumented in this encounter Care Teams Kit Planner Relationship Specialty Start Date End Date Aleida Langley MD [address] [place] [address] PCP - General Internal Medicine 10/09/20 documented as of this encounter Additional Source Comments The information contained in this document represents components of the legal health record. It is not the complete legal health record.[facility]
--- OUTSIDE RECORDS SUMMARY | 2025-10-25 12:06 | XMS_ITS | Encounter Summary ---
Author Organization [facility] Address [address] [place] [phone] Phone Care Team Providers Care Sec Accountant Name Role Phone Aleida Langley MD Primary Care Provider Encounter Details Date Type Department Care Team (Late st Contact Info) Description 01/17/2021 Procedure Pass OR Admitting Dept - [facility] Department [address] [place] [address] Social History Tobacco Use Types Packs/Day Years [...] on filedocumented in this encounter Care Teams Sec Accountant Relationship Specialty Start Date End Date Aleida Langley MD [address] [place] [address] PCP - General Internal Medicine 10/09/20 documented as of this encounter Additional Source Comments The information contained in this document represents components of the legal health record. It is not the complete legal health record.[facility]
--- OUTSIDE RECORDS SUMMARY | 2025-10-25 12:06 | XMS_ITS | Encounter Summary ---
Author Organization [facility] Address [address] [place] [phone] Phone Care Team Providers Care Food Service Employee Name Role Phone Aleida Langley MD Primary Care Provider Encounter Details Date Type Department Care Team (Late st Contact Info) Description 02/18/2021 Procedure Pass [facility] [place] [facility] [address] [place] [address] Social History Tobacco Use Types Packs/Day Years [...] on filedocumented in this encounter Care Teams Food Service Employee Relationship Specialty Start Date End Date Aleida Langley MD [address] [place] [address] PCP - General Internal Medicine 10/09/20 documented as of this encounter Additional Source Comments The information contained in this document represents components of the legal health record. It is not the complete legal health record.[facility]
--- OUTSIDE RECORDS SUMMARY | 2025-10-25 12:06 | XMS_ITS | Clinical Summary ---
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 Pham, [facility] Preop examination 12/04/2020 Assessment & Plan (12/04/2020 12:09 PM EST): This is a 65-year-old patient of Dr.Cuevas Foss at [facility] and Dr. Pham seen at the surgical optimization clinic for planned right shoulder arthroplasty on 01/17. This is a very active 65-year-old male with excellent exercise tolerance. His risk calculators show a Trejo score of 0.2% chance of cardiac issues perioperatively or in the first 30 days. His RCRI score is congruent with this at 0.4% chance of GA, CHF, or arrhythmia perioperatively. This is considered [...] study 2 to 3 months ago at [place] and he has not been restarted on [...] this topic Medical Devices Implanted Type Area Women'S Garment Fitter Device Identifier Shelf Expiration Date Model / Serial / Lot Right Shoulder NODATA Right: Shoulder Description:Unknown hardware from prior surgery Bilateral Knees Prosthetic Joint Prosthetic Joint Bilateral: Knee Shoulder Implant 30mm Md Component Glenoid Aequalis Perform Cortiloc - [id number] Implanted:Qty : 1 on 01/17/2021 by Vamsi Pham DO at [facility] STANDARD Right: Acromial Process [employer] 04/20/2022 [id number] / [id number] / Cement Bone Biomet Standard R 1x40 Us - [id number] Implanted:Qty : 1 on 01/17/2021 by Vamsi Pham DO at [facility] Right: Acromial Process MINESH / DIV OF [employer] 06/29/2025 [id number] / / [id number] Shoulder Simpliciti Size 2 Nucleus Humeral System - [id number] Implanted:Qty : 1 on 01/17/2021 by Vamsi Pham DO at [facility] Right: Acromial Process [employer] 11/16/2024 [id number] / [id number] / Shoulder [id number] Prosthesis Simpliciti - [id number] Implanted:Qty : 1 on 01/17/2021 by Vamsi Pham DO at [facility] Right: Acromial Process [employer] 03/26/2025 [id number] / [id number] / Cement Bone Biomet Standard R 1x40 Us - [id number] Implanted:Qty : 1 on 06/13/2021 by Vamsi Pham DO at [facility] Right: Shoulder MINESH / DIV OF [employer] 08/01/2025 [id number] / / [id number] Cement Bone Biomet Standard R 1x40 - [id number] Implanted:Qty : 1 on 06/13/2021 by Vamsi Pham DO at [facility] Right: Shoulder MINESH / DIV OF [employer] 04/01/2024 [id number] / / [id number] Insurance HU[employer] PPO MEDICARE REPLACEMENT [employer] PPO MEDICARE REPLACEMENT [employer] PPO MEDICARE REPLACEMENT O MEDICARE REPLACEMENT MEDICARE REPLACEMENT [address] [place], [place] [id number] MEDICARE [facility] Advance Directives For more information, please contact: [phone] (9AM - 5PM [facility], Thursday-Thursday) Documents on File Type Date Recorded Patient Lift Slab Operator Expl anation Healthcare Proxy 02/20/2021 1:52 PM * Full Code (Latest Code Status on File) Date Activated Date Inactivated Comments 02/14/2021 1:12 PM Question Answer Comments Code Status Confirmed With: Patient Care Teams Chick Sexer Relationship Specialty Start Date End Date Aleida Langley MD [address] [place] [address] PCP - General Internal Medicine 10/09/20 Additional Source Comments The information contained in this document represents components of the legal health record. It is not the complete legal health record.[facility]
--- OUTSIDE RECORDS SUMMARY | 2025-10-25 12:06 | XMS_ITS | Encounter Summary ---
Author Organization [facility] Address [address] [facility] [address] [place] [address] Phone Care Team Providers Care Chisel Trimmer Name Role Phone Aleida Langley MD Primary Care Provider Encounter Details Date Type Department Care Team (Late st Contact Info) Description 06/14/2021 Procedure Pass [facility] [place] [facility] [address] [place] [address] Social History Tobacco Use Types Packs/Day Years [...] on filedocumented in this encounter Care Teams Chisel Trimmer Relationship Specialty Start Date End Date Aleida Langley MD [address] [place] [address] PCP - General Internal Medicine 10/09/20 documented as of this encounter Additional Source Comments The information contained in this document represents components of the legal health record. It is not the complete legal health record.[facility]
--- OUTSIDE RECORDS SUMMARY | 2025-10-25 12:06 | XMS_ITS | Encounter Summary ---
Author Organization [facility] Address [address] [facility] [address] [place] [address] Phone Care Team Providers Care Compensator Name Role Phone Aleida Langley MD Primary Care Provider Encounter Details Date Type Department Care Team (Late st Contact Info) Description 06/13/2021 Procedure Pass OR Admitting Dept - [facility] Department [address] [place] [address] Social History Tobacco Use Types Packs/Day Years [...] on filedocumented in this encounter Care Teams Compensator Relationship Specialty Start Date End Date Aleida Langley MD [address] [place] [address] PCP - General Internal Medicine 10/09/20 documented as of this encounter Additional Source Comments The information contained in this document represents components of the legal health record. It is not the complete legal health record.[facility]
--- OUTSIDE RECORDS SUMMARY | 2025-10-25 12:06 | XMS_ITS | Encounter Summary ---
Author Organization [facility] Address [address] [facility] [address] [place] [address] Phone Care Team Providers Care Rigger Up Name Role Phone Unknown, Unknown Primary Care Provider Aleida Rios MD Primary Care Provider Encounter Details Date Type Department Care Team (Late st Contact Info) Description 09/04/2020 Ancillary Orders [facility],Outside Imaging [address] [place], [place] [id number] System, Provider Not In, [facility] [address] [address] Social History Tobacco Use Types Packs/Day Years [...] on filedocumented in this encounter Care Teams Rigger Up Relationship Specialty Start Date End Date Unknown, Unknown, PCP - General 09/03/20 10/08/20 Aleida Langley MD [address] [place], [place] [id number] PCP - General Internal Medicine 10/09/20 documented as of this encounter Additional Source Comments The information contained in this document represents components of the legal health record. It is not the complete legal health record.[facility]
--- OUTSIDE RECORDS SUMMARY | 2025-10-25 12:06 | XMS_ITS | Encounter Summary ---
Author Organization [facility] Address [address] [facility] [address] [place] [address] Phone Care Team Providers Care Payroll Machine Operator Name Role Phone Aleida Langley MD Primary Care Provider Encounter Details Date Type Department Care Team (Late st Contact Info) Description 02/18/2021 Procedure Pass [facility] [place] [facility] [address] [place] [address] Social History Tobacco Use Types Packs/Day Years [...] on filedocumented in this encounter Care Teams Payroll Machine Operator Relationship Specialty Start Date End Date Aleida Langley MD [address] [place] [address] PCP - General Internal Medicine 10/09/20 documented as of this encounter Additional Source Comments The information contained in this document represents components of the legal health record. It is not the complete legal health record.[facility]
--- OUTSIDE RECORDS SUMMARY | 2025-10-25 12:06 | XMS_ITS | Encounter Summary ---
Author Organization [facility] Address [address] [facility] [address] [place] [address] Phone Care Team Providers Care Patternmaker Hand Name Role Phone Aleida Langley MD Primary Care Provider Encounter Details Date Type Department Care Team (Late st Contact Info) Description 09/03/2021 Procedure Pass [facility] [place] [facility] [address] [place] [address] Social History Tobacco Use Types Packs/Day Years [...] on filedocumented in this encounter Care Teams Patternmaker Hand Relationship Specialty Start Date End Date Aleida Langley MD [address] [place] [address] PCP - General Internal Medicine 10/09/20 documented as of this encounter Additional Source Comments The information contained in this document represents components of the legal health record. It is not the complete legal health record.[facility]
--- OUTSIDE RECORDS SUMMARY | 2025-10-25 12:07 | XMS_ITS | Patient Health Record ---
Author Organization [facility] Address [address] [place] [address] Care Team Providers Care Saddle Mechanic Name Role Phone Rae Alvarez PA-C Primary Care Provider Dino Saxena Unavailable [phone] Reason For Referral No Information Medications Medication SIG (Take, Route, Frequency, Duration) Notes Start Date End Date Status Diclofenac Sodium Ac tive MoviPrep 100 GM Solution as directed Ora lly as directed; Duration: 1 dose 12/23/2014 Activ e Lisinopril-hydroCHLOROthia zide Active Social History Social History Additional Details Category Social Info Options Details Miscellaneous: Marital status: 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 Section Notes: Nonsmoker; 2-3 glasses of wi ne QD Problems Problem Type SNOMED Code ICD Code Onset Dates Problem Status W/U Status Risk Notes Problem [facility] current use of non-steroidal anti-inflammat ory drug (situation) (5693267337107 03) Long-term (current) use of nonsteroidal anti-inflammatori es (NSAID) (V58.64) Active confirmed Problem Colon cancer screening (119857446) Colon cancer screening (V76.51) Active confirmed Problem History of polyp of colon (706031029) H/O adenomatous polyp of colon (V12.72) Active confirmed Plan Of Treatment Future Test Test Name Order Date COLONOSCOPY 11/10/2014 Next Appt Details Provider Name:Dino Esquivel , 01/24/2026 01:00:00 PM, [address], [address], [place], [address], Insurance Providers Payer Name Payer Address Payer Phone Subscriber Number Group Number Insured Name Patient Relationship to Insured Coverage Start Date Coverage End Date MEDICARE OF [place] [address] [place] [address] [id number] BETTY CORREIA Self - patient is the insured [employer] [address] [address] [place] [address] [id number] BETTY CORREIA Self - patient is the insured 5 Medical (General) History Medical History History ICD Code Screening colonoscopy in 200 2 revealed a 2 cm tubular adenoma removed from the sigmoid colon. He had a negative colonoscopy in 2004 and 2008, other than some diverticulosis and internal hemorrhoids Diverticulosis Thalassemia Denies NE,DM,CVA,Lung disease,renal dise ase HTN Surgical History Surgery Date(Month/Year) Appendectomy Tonsillectomy Left knee arthroscopy He'll be having knee replacements in the 2014
--- OUTSIDE RECORDS SUMMARY | 2025-10-25 12:07 | XMS_ITS | Encounter Summary ---
Author Organization [facility] Address [address] [facility] [address] [place] [address] Phone Care Team Providers Care Copier Operator Name Role Phone Aleida Langley MD Primary Care Provider Encounter Details Date Type Department Care Team (Late st Contact Info) Description 10/15/2021 Procedure Pass [facility] [place] [facility] [facility] [address] [place] [address] Social History Tobacco Use Types Packs/Day Years [...] on filedocumented in this encounter Care Teams Copier Operator Relationship Specialty Start Date End Date Aleida Langley MD [address] [place] [address] PCP - General Internal Medicine 10/09/20 documented as of this encounter Additional Source Comments The information contained in this document represents components of the legal health record. It is not the complete legal health record.[facility]
--- OUTSIDE RECORDS SUMMARY | 2025-10-25 12:07 | XMS_ITS | Encounter Summary ---
Author Organization [facility] Address [address] [place] [address] Phone Care Team Providers Care Pole Classifier Name Role Phone Unknown, Unknown Primary Care Provider Aleida Rios MD Primary Care Provider Encounter Details Date Type Department Care Team (Late st Contact Info) Description 10/02/2020 Procedure Pass [facility], Ct Scan - [address] [address] Social History Tobacco Use Types Packs/Day Years [...] on filedocumented in this encounter Care Teams Pole Classifier Relationship Specialty Start Date End Date Unknown, Britney, PCP - General 09/03/20 10/08/20 Aleida Langley MD [address] [place] [address] PCP - General Internal Medicine 10/09/20 documented as of this encounter Additional Source Comments The information contained in this document represents components of the legal health record. It is not the complete legal health record.[facility]
== END 2025-10-25 12:38 | disposition home or self-care (01) ==
LOC: HO.HOS 12:03
PROVIDERS: PCP Physician Assistant Medical
DX: G56.03 Carpal tunnel syndrome, bilateral upper limbs (principal); G56.23 Lesion of ulnar nerve, bilateral upper limbs
CPT/HCPCS: 99024